=== PATIENT | female | born 1990 | race Caucasian/White ===

== ENCOUNTER 2022-11-28 05:08 | Inpatient (IN) ==
[2022-11-28] MEDS ORDERED: LIDOCAINE 1% LOCAL 20 ML VIAL INFIL PRN (05:53)
[2022-11-28] MEDS ORDERED: PENICILLIN G POTASSIUM 6 MU in DEXTROSE 5% 250 ML IV STA (05:53)
[2022-11-28] MEDS ORDERED: OXYTOCIN 30 UNITS/500 ML BAG IV PRN ×2 (05:53→20:18)
[2022-11-28] MEDS: LACTATED RINGER'S 1,000 ML IV PRN ×2 (06:11→14:36)
[2022-11-28 07:06] LABS: Hematocrit (blood only) 39.6 % (37.0-47.0); Hemoglobin 12.3 g/dl (12.0-16.0); Mean Corpuscular Hemoglobin 26.6 pg (25.0-34.0); Mean Corpuscular Hgb Conc 31.1 g/dL (32.0-36.0); Mean Corpuscular Volume 85.7 fL (80.0-100.0); Mean Platelet Volume 10.2 fL (9.4-12.4); Platelet Count 276 K/uL (130-400); RDW Standard Deviation 49.6 fL (36.4-46.3); Red Blood Count 4.62 M/uL (4.20-5.40); White Blood Count 9.51 K/ul (4.8-10.8)
[2022-11-28] MEDS ORDERED: SODIUM CHLORIDE 0.9% PF INJ 10 ML VIAL ONE (07:34)
[2022-11-28] MEDS ORDERED: ePHEDrine sulfate 50 MG/ML AMP ONE (07:34)
[2022-11-28] MEDS ORDERED: fentaNYL citrate PF 100 MCG/2 ML VIAL ONE (07:34)
[2022-11-28] MEDS ORDERED: BUPIVACAINE 0.25% PF 30 ML VIAL ONE (07:35)
[2022-11-28] MEDS ORDERED: fentaNYL 2MCG/ML ROPIVACAINE 1.25MG/ML 100 ML BAG EPI ONE (07:35)
[2022-11-28] MEDS ORDERED: LIDOCAINE 2%/EPINEPHRINE 1:200,000 20 ML PF ONE ×2 (07:35→19:14)
--- NOTE | 2022-11-28 07:36 | History & Physical Report ---
Date of Service November 28, 2022 Assessment & Plan (1) Carrier of group B Streptococcus: (2) PROM (premature rupture of membranes): Plan - Will admit to labor and delivery due to having PROM and contractions. - CBC was benign. - Anesthesia consulted for epidural placement. - Will consider Pitocin if unable to progress on her own. - membrane still intact, will rupture after epidural placement. - GBS+, penicillin started. Admission and Anticipated Discharge Date Admission Date: November 28, 2022 History of Present Illness Chief Complaint: PROM Primary Care Provider: Gloria Chavarria, DO at 40w 1d confirmed via LMP. Here for vaginal delivery after having her water break this morning at 4am and then contractions as well. Complications with this include GBS +. Has been attending OB appointments regularly. Currently taking no medications. Contractions: yes. Fluid or Blood loss: yes Movement: active Labs - Blood type: A+ - Antibody screen: negative - H.1 - Hct: 34.8 - Plt: 350 - Rubella: immune - VDRL/RPR: negative - Gonorrhea: negative - Chlamydia: negative - HIV: negative - HbSAg: negative - GBS: positive - Glucose tolerance x 2 Allergies Allergy/AdvReac Type Severity Reaction Status Date / Time No Known Allergies Allergy Verified 11/22/22 10:05 Home Medications Medication Instructions Recorded Confirmed Type docusate sodium 50 mg capsule 50 mg PO TID 11/28/22 11/28/22 History famotidine 20 mg tablet 20 mg PO DAILY 11/28/22 11/28/22 History idhkudei-[id number] 1 mg 1 tab PO DAILY 11/28/22 11/28/22 History tablet Patient History Medical History No significant past medical history Surgical History History of appendectomy S/P wisdom tooth extraction Family History Denies family history of Ovarian cancer Prostate cancer Myocardial infarction Breast cancer Colorectal cancer Social History (Updated 04/16/22 @ 11:40 by Kayla Whittaker) Smoking Status: Never smoker Second Hand Exposure: No; Do You Dip or Chew Tobacco: No; Hx Alcohol Use: No Hx Substance Use: No Preferred Language: Kyrgyz Hearing Ability: Normal 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 Curator Required: No Beliefs That Will Affect Care: None marital status: marital status details: Garrett (32) [phone] Current Living Situation: Spouse Current Living Situation Comment: lives with spouse, no pets current occupational status: employed current occupation: RN in ED at [employer] How many Children do You have: 0 Other Information That Helps Us Care for You: No Feels Safe at Home: Yes Safety Concerns: Feels Safe At This Time Childhood Exposure to Second-Hand Smoke: Yes Diet: regular caffeine: Yes Dental Care, Regularly: Yes Physical Activity Frequency: 1-2 Times per Week Seatbelt Use: always Sunscreen Use: Yes Assistive Devices: None Review of Systems Denies fever, chills, sweats Denies shortness of breath, difficulty breathing, chest pain, palpitations, chest pressure. Denies breast pain. Denies dysuria. Denies headache or changes in vision. Physical Exam Physical Exam: General: Alert, oriented. No acute distress. Cardiac: Regular rate and rhythm, no murmurs/rubs/gallops. Respiratory: Clear to auscultation bilaterally a/p, no wheezes/rales/rhonchi. No increased work of breathing. Symmetrical chest rise. No respiratory distress. Abdomen: Gravid; cat 1 FHTs; Position: cephalic presentation Pelvic: Dilation 4.5cm; Effacement 60; Station -[address] Garza Lower Extremities: No lower extremity edema or swelling. No deep calf pain. [place]'s negative bilaterally Results & Data Vital Signs (Past 12 Hours) Vital Signs Temp Pulse Resp BP 11/28/22 05:28 37.2 C 18 11/28/22 07:04 83 158/94 H 11/28/22 05:38 99 H 140/85 11/28/22 05:27 94 H 145/91 H Supervising Physician Co-Signing Physician Notes Resident Physician Supervision Note: I interviewed and examined the patient. Discussed with Dr. Eaton and agree with findings and plan as documented in the note. Any exceptions or clarifications are listed here: 32 yo G1 at 40 1/7 wga presented w/ LOF. Amnisure confirmed positive. PNI: GBS+. Mild range BPs, pt appears uncomfortable - suspect pain related but will get labs to r/o. SVE 4-5/-2 with forebag palpated. Desires epidural so will obtain and then plan rupture of forebag. Pcn ordered Documented By: Radha Garza MD Resident Activity Tracking Resident Involvement: Resident Care Provided Care Provided: OB Delivery
--- NOTE | 2022-11-28 07:40 | Anesthesiology Consultation ---
Date of Service November 28, 2022 Assessment & Plan (1) Encounter for pre-operative examination: Chart Review Chart Review: Acceptable Risk for Labor Epidural History Height/Weight Height: 5 ft 7 in Weight: 99.79 kg Allergies Allergy/AdvReac Type Severity Reaction Status Date / Time No Known Allergies Allergy Verified 11/22/22 10:05 Medications Home Medications Medication Instructions Recorded Confirmed Last Taken docusate sodium 50 mg capsule 50 mg PO TID 11/28/22 11/28/22 Unknown famotidine 20 mg tablet 20 mg PO DAILY 11/28/22 11/28/22 Unknown inilvfsp-[id number] 1 mg 1 tab PO DAILY 11/28/22 11/28/22 Unknown tablet Active Medications Generic Name Dose Route Start Last Admin Trade Name Freq PRN Reason Stop Dose Admin Lactated Ringer's 1,000 mls @ 125 mls/hr 11/28/22 05:53 11/28/22 06:11 Lr IV 11/30/22 05:52 125 mls/hr .Q8H PRN Administration L&D Protocol Protocol Past Medical History Medical History No significant past medical history Past Family History Family History Denies family history of Ovarian cancer Prostate cancer Myocardial infarction Breast cancer Colorectal cancer Past Surgical History Surgical History History of appendectomy S/P wisdom tooth extraction Social History Smoking Status: Never smoker Do You Dip or Chew Tobacco: No Hx Alcohol Use: No Hx Substance Use: No Physical Exam Vital Signs Last Vital Signs Temp 37.2 C 11/28/22 05:28 Pulse 83 11/28/22 07:04 Resp 18 11/28/22 05:28 BP 158/94 H 11/28/22 07:04 Testing Laboratory Results 11/28/22 06:44
[2022-11-28] MEDS ORDERED: fentaNYL citrate PF 100 MCG/2 ML VIAL EPI PRN (08:24)
[2022-11-28] MEDS ORDERED: fentaNYL 2MCG/ML ROPIVACAINE 1.25MG/ML 100 ML BAG EPI PRN (08:24)
[2022-11-28] MEDS ORDERED: fentaNYL citrate PF 100 MCG/2 ML VIAL EPI STA (08:24)
[2022-11-28] MEDS ORDERED: ROPIVACAINE 0.5% PF 5 MG/ML 20 ML VIAL EPI PRN (08:24)
[2022-11-28] MEDS ORDERED: SODIUM CHLORIDE 0.9% PF INJ 10 ML VIAL EPI STA (08:24)
[2022-11-28] MEDS ORDERED: NALOXONE HCL 1 MG in SODIUM CHLORIDE 0.9% 1000ML 1,000 ML IV PRN (08:24)
[2022-11-28] MEDS ORDERED: ONDANSETRON INJ 2 MG/ML 2 ML VIAL IV PRN (08:24)
[2022-11-28] MEDS ORDERED: BUPIVACAINE 0.25% PF 30 ML VIAL EPI PRN (08:24)
[2022-11-28] MEDS ORDERED: ePHEDrine sulfate 50 MG/ML AMP IV PRN (08:24)
[2022-11-28] MEDS ORDERED: NALOXONE HCL 0.4 MG/1 ML VIAL/CARP IV PRN (08:24)
[2022-11-28] MEDS ORDERED: LIDOCAINE 2% MPF LOCAL 5 ML VIAL EPI PRN (08:24)
[2022-11-28] MEDS ORDERED: BUPIVACAINE 0.25% PF 30 ML VIAL EPI STA (08:24)
[2022-11-28] MEDS ORDERED: SODIUM CHLORIDE 0.9% PF INJ 10 ML VIAL EPI PRN (08:24)
[2022-11-28] MEDS ORDERED: LIDOCAINE 2%/EPINEPHRINE 1:200,000 20 ML PF EPI STA (08:24)
[2022-11-28 09:00] LABS: Albumin Level 3.4 gm/dl (3.4-5.0); BUN Creatinine Ratio 11.6 (10-20); Bilirubin,Total 0.4 mg/dl (0.2-1.0); Calcium 8.9 mg/dl (8.6-10.3); Creatinine Clr Calc Pharmacy 140.7 ml/min; Est GFR (African American) 132.6 ml/min; Est GFR (Non-African American) 114.4 ml/min; Globulin 3.4 gm/dl (2.5-4.0); Potassium 4.4 mmol/L (3.5-5.1); Total Protein 6.8 gm/dl (6.0-8.3)
--- NOTE | 2022-11-28 10:29 | Labor Progress Brief Note ---
Date of Service November 28, 2022 Subjective Comfortable with epidural. FHT Cat 1 with 3 minute decel resolved with position changes. [place] Q 2 SVE 7/100/-1 AROM of forebag, clear fluid Continue labor. Assessment & Plan Admission and Anticipated Discharge Date Admission Date: November 28, 2022 Results & Data Vital Signs (Past 12 Hours) Vital Signs Temp Pulse Resp BP Pulse Ox 11/28/22 05:28 37.2 C 18 11/28/22 10:22 100 H 98 11/28/22 10:17 94 H 97 11/28/22 10:16 94 H 119/73 11/28/22 10:12 94 H 97 11/28/22 10:07 97 H 97 11/28/22 10:02 96 H 125/81 97 11/28/22 09:57 103 H 97 11/28/22 09:52 100 H 98 11/28/22 09:47 100 H 98 11/28/22 09:46 93 H 130/86 11/28/22 09:42 97 H 98 11/28/22 09:37 106 H 98 11/28/22 09:32 102 H 98 11/28/22 09:31 99 H 126/81 11/28/22 09:27 95 H 98 11/28/22 09:25 18 11/28/22 09:25 37.5 C 18 11/28/22 09:22 109 H 99 11/28/22 09:17 97 H 97 11/28/22 09:16 100 H 125/72 11/28/22 09:12 105 H 99 11/28/22 09:07 101 H 98 11/28/22 09:02 98 11/28/22 09:02 106 H 11/28/22 09:02 95 H 130/74 11/28/22 08:57 108 H 99 11/28/22 08:52 104 H 98 11/28/22 08:47 99 11/28/22 08:47 104 H 11/28/22 08:47 102 H 129/75 11/28/22 08:42 99 H 98 11/28/22 08:37 111 H 98 11/28/22 08:32 111 H 98 11/28/22 08:30 106 H 135/74 11/28/22 08:27 115 H 136/78 98 11/28/22 08:24 111 H 136/77 06/01/23 08:22 120 H 99 11/28/22 08:21 114 H 128/78 11/28/22 08:18 102 H 126/76 11/28/22 08:17 90 98 11/28/22 08:16 78 99/52 L 11/28/22 08:12 98 11/28/22 08:12 115 H 11/28/22 08:12 116 H 131/81 11/28/22 08:06 110 H 97 11/28/22 08:04 110 H 136/89 11/28/22 08:01 120 H 98 11/28/22 07:57 118 H 140/96 11/28/22 07:56 118 H 99 11/28/22 07:51 104 H 98 11/28/22 07:04 83 158/94 H 11/28/22 05:38 99 H 140/85 11/28/22 05:27 94 H 145/91 H Coding Level of Care Code None Diagnoses
[2022-11-28 10:55] LABS: Total Protein Urine Random 28.9 mg/dl (0-11.9)
[2022-11-28 11:01] LABS: Creatinine Urine Random 108.4 mg/dl; Protein Creatinine Ratio Urine 0.3 (0-0.2)
[2022-11-28] MEDS: PENICILLIN G POTASSIUM 3 MU in DEXTROSE 5% 100 ML IV PRN ×3 (11:15→20:13)
[2022-11-28] MEDS ORDERED: NURSING L&D Epidural Breakthrough Pain Update ONE (13:52)
[2022-11-28] MEDS ORDERED: ACETAMINOPHEN 500 MG TAB PO PRN (14:30)
--- NOTE | 2022-11-28 14:48 | Anesthesia Procedure Note ---
Date of Service November 28, 2022 Anesthesia Epidural Re-Dose Vital Signs Temp Pulse Resp BP Pulse Ox 37.0 C 99 H 18 135/100 98 11/28/22 13:16 11/28/22 14:42 11/28/22 13:16 11/28/22 14:31 11/28/22 14:42 Notes Pain Intensity: 4 Dilatation (cm): 9.0 Effacement (%): 100 Called by nursing to evaluate epidural as the patient is having increased pain. The epidural was re-dosed with the following medications (all medications via epidural route) after negative aspiration of the epidural catheter for CSF/HEME 1.2% lidocaine and 0.2% ropivacaine 6ml After Epidural Re-Dose Mental Status: alert / awake / arousable Pain: improving with treatment Airway Patency, RR, SpO2: stable & adequate BP & HR: stable & adequate
[2022-11-28] MEDS ORDERED: ROPIVACAINE 0.5% 5 MG/ML 30 ML VIAL ONE (19:14)
--- NOTE | 2022-11-28 19:19 | Anesthesia Procedure Note ---
Date of Service November 28, 2022 Anesthesia Epidural Re-Dose Vital Signs Temp Pulse Resp BP Pulse Ox 37.4 C 94 H 18 148/75 H 97 11/28/22 19:08 11/28/22 19:12 11/28/22 19:08 11/28/22 19:06 11/28/22 19:12 Notes Pain Intensity: 4 Dilatation (cm): 9.5 Effacement (%): 100 Called by nursing to evaluate epidural as the patient is having increased pain. The epidural was re-dosed with the following medications (all medications via epidural route) after negative aspiration of the epidural catheter for CSF/HEME 1.2% lidocaine and 0.2% ropivacaine 7ml After Epidural Re-Dose Mental Status: alert / awake / arousable Pain: improving with treatment Airway Patency, RR, SpO2: stable & adequate BP & HR: stable & adequate
--- NOTE | 2022-11-28 20:12 | Labor Progress Brief Note ---
Date of Service November 28, 2022 Subjective Had anterior lip, started pushing with retraction of cervical lip - mostly resolved - will continue pushing and recheck after a few more contractions. FHT Cat 1 with accels, except 2 decelerations resolved with repositioning. station 1+ Assessment & Plan Admission and Anticipated Discharge Date Admission Date: November 28, 2022 Results & Data Vital Signs (Past 12 Hours) Vital Signs Temp Pulse Resp BP Pulse Ox 11/28/22 19:08 37.4 C 18 11/28/22 20:09 126 H 88 L 11/28/22 20:07 116 H 99 11/28/22 20:02 115 H 100 11/28/22 19:59 117 H 92 11/28/22 19:57 97 H 99 11/28/22 19:52 97 H 98 11/28/22 19:51 98 H 116/71 11/28/22 19:47 109 H 97 11/28/22 19:42 86 97 11/28/22 19:37 105 H 97 11/28/22 19:36 99 H 119/71 11/28/22 19:32 99 H 98 11/28/22 19:27 98 H 97 11/28/22 19:22 100 H 97 11/28/22 19:21 92 H 132/81 11/28/22 19:19 83 138/72 11/28/22 19:17 81 153/79 H 96 11/28/22 19:12 94 H 97 11/28/22 19:07 86 97 11/28/22 19:06 88 148/75 H 11/28/22 19:02 104 H 98 11/28/22 18:57 107 H 97 11/28/22 18:52 91 H 97 11/28/22 18:51 93 H 133/76 11/28/22 18:47 88 97 11/28/22 18:42 93 H 98 11/28/22 18:37 96 H 97 11/28/22 18:35 90 133/74 11/28/22 18:34 103 H 93 11/28/22 18:32 86 98 11/28/22 18:27 95 H 98 11/28/22 18:22 97 H 98 11/28/22 18:17 91 H 97 11/28/22 18:12 92 H 97 11/28/22 18:07 101 H 97 11/28/22 18:05 91 H 131/83 11/28/22 18:02 93 H 96 11/28/22 17:57 93 H 97 11/28/22 17:52 95 H 98 11/28/22 17:50 95 H 125/85 11/28/22 17:47 85 97 11/28/22 17:42 97 H 97 11/28/22 17:37 88 96 11/28/22 17:36 85 129/82 11/28/22 17:32 88 97 11/28/22 17:27 91 H 97 11/28/22 17:22 106 H 98 11/28/22 17:21 89 141/80 H 11/28/22 17:17 101 H 98 11/28/22 17:12 102 H 98 11/28/22 17:07 105 H 98 11/28/22 17:06 94 H 136/97 11/28/22 17:02 105 H 97 11/28/22 16:57 97 H 99 11/28/22 16:52 94 H 99 11/28/22 16:50 92 H 127/77 11/28/22 16:47 92 H 99 11/28/22 16:42 88 99 11/28/22 16:37 98 H 99 11/28/22 16:30 17 11/28/22 16:30 37.1 C 17 11/28/22 16:35 94 H 139/83 11/28/22 16:32 90 99 11/28/22 16:27 92 H 99 11/28/22 16:22 95 H 99 11/28/22 16:21 90 141/71 H 11/28/22 16:17 98 H 99 11/28/22 16:12 89 98 11/28/22 16:07 84 99 11/28/22 16:06 93 H 122/72 11/28/22 16:02 84 99 11/28/22 15:57 88 98 11/28/22 15:52 86 99 11/28/22 15:51 86 119/67 11/28/22 15:47 94 H 98 11/28/22 15:42 92 H 99 11/28/22 15:37 102 H 99 11/28/22 15:35 84 122/67 11/28/22 15:32 84 98 11/28/22 15:27 93 H 99 11/28/22 15:22 86 98 11/28/22 15:21 90 130/72 11/28/22 15:17 95 H 99 11/28/22 15:12 91 H 98 11/28/22 15:07 106 H 100 11/28/22 15:05 96 H 136/77 11/28/22 15:02 93 H 98 11/28/22 14:57 99 H 98 11/28/22 14:52 95 H 97 11/28/22 14:49 95 H 145/87 H 11/28/22 14:47 97 11/28/22 14:47 95 H 11/28/22 14:47 93 H 137/82 11/28/22 14:45 37.0 C 96 H 148/91 H 11/28/22 14:42 99 H 98 11/28/22 14:37 98 H 97 11/28/22 14:32 96 H 98 11/28/22 14:31 88 135/100 11/28/22 14:27 94 H 97 11/28/22 14:22 92 H 97 11/28/22 14:17 98 H 97 11/28/22 14:16 89 140/87 11/28/22 14:12 104 H 98 11/28/22 14:07 99 H 98 11/28/22 14:02 103 H 137/82 97 11/28/22 13:57 101 H 98 11/28/22 13:52 92 H 97 11/28/22 13:47 100 H 98 11/28/22 13:46 94 H 142/83 H 11/28/22 13:42 93 H 97 11/28/22 13:37 94 H 97 11/28/22 13:32 91 H 97 11/28/22 13:31 98 H 135/91 11/28/22 13:27 91 H 98 11/28/22 13:22 89 97 11/28/22 13:17 99 H 98 11/28/22 13:16 37.0 C 97 H 18 126/79 11/28/22 13:12 100 H 97 11/28/22 13:07 95 H 98 11/28/22 13:02 84 98 11/28/22 13:01 93 H 142/86 H 11/28/22 12:57 96 H 98 11/28/22 12:52 100 H 144/83 H 98 11/28/22 12:47 103 H 97 11/28/22 12:46 98 H 157/102 H 11/28/22 12:42 100 H 98 11/28/22 12:37 104 H 97 11/28/22 12:32 99 H 98 11/28/22 12:31 94 H 144/93 H 11/28/22 12:27 95 H 97 11/28/22 12:22 104 H 97 11/28/22 12:17 105 H 141/90 H 97 11/28/22 12:12 102 H 98 11/28/22 12:07 101 H 97 11/28/22 12:02 94 H 96 11/28/22 12:01 100 H 141/87 H 11/28/22 11:57 98 H 97 11/28/22 11:52 99 H 97 11/28/22 11:47 98 11/28/22 11:47 99 H 11/28/22 11:47 103 H 143/88 H 11/28/22 11:42 95 H 97 11/28/22 11:37 110 H 98 11/28/22 11:32 110 H 97 11/28/22 11:31 108 H 137/91 11/28/22 11:27 104 H 97 11/28/22 11:22 98 H 97 11/28/22 11:17 97 H 97 11/28/22 11:16 37.4 C 96 H 17 137/85 11/28/22 11:12 99 H 97 11/28/22 11:07 102 H 97 11/28/22 11:02 98 11/28/22 11:02 99 H 11/28/22 11:02 99 H 135/83 11/28/22 10:57 102 H 97 11/28/22 10:52 98 H 97 11/28/22 10:47 97 H 97 11/28/22 10:46 98 H 137/78 11/28/22 10:42 98 H 98 11/28/22 10:37 89 98 11/28/22 10:32 96 H 144/84 H 97 11/28/22 10:27 98 H 97 11/28/22 10:22 100 H 98 11/28/22 10:17 94 H 97 11/28/22 10:16 94 H 119/73 11/28/22 10:12 94 H 97 11/28/22 10:07 97 H 97 11/28/22 10:02 96 H 125/81 97 11/28/22 09:57 103 H 97 11/28/22 09:52 100 H 98 11/28/22 09:47 100 H 98 11/28/22 09:46 93 H 130/86 11/28/22 09:42 97 H 98 11/28/22 09:37 106 H 98 11/28/22 09:32 102 H 98 11/28/22 09:31 99 H 126/81 11/28/22 09:27 95 H 98 11/28/22 09:25 18 11/28/22 09:25 37.5 C 18 11/28/22 09:22 109 H 99 11/28/22 09:17 97 H 97 11/28/22 09:16 100 H 125/72 11/28/22 09:12 105 H 99 11/28/22 09:07 101 H 98 11/28/22 09:02 98 11/28/22 09:02 106 H 11/28/22 09:02 95 H 130/74 11/28/22 08:57 108 H 99 11/28/22 08:52 104 H 98 11/28/22 08:47 99 11/28/22 08:47 104 H 11/28/22 08:47 102 H 129/75 11/28/22 08:42 99 H 98 11/28/22 08:37 111 H 98 11/28/22 08:32 111 H 98 11/28/22 08:30 106 H 135/74 11/28/22 08:27 115 H 136/78 98 11/28/22 08:24 111 H 136/77 11/28/22 08:22 120 H 99 11/28/22 08:21 114 H 128/78 11/28/22 08:18 102 H 126/76 11/28/22 08:17 90 98 11/28/22 08:16 78 99/52 L 11/28/22 08:12 98 11/28/22 08:12 115 H 11/28/22 08:12 116 H 131/81 Coding Level of Care Code None Diagnoses
[2022-11-28] MEDS ORDERED: MINERAL OIL 30 ML UDC ONE (22:37)
--- NOTE | 2022-11-29 00:40 | Delivery Summary ---
Vaginal Delivery Summary Date of Service November 29, 2022 Vaginal Delivery Summary and 2nd Degree LAC (with bilateral sulcal) Pre-operative Diagnosis: at 40 1/7 srom gbs positive Post-operative Diagnosis: same Procedure: epidural pitocin stellate second degree laceration and repair EBL: 450cc Anesthesia: epidural Procedure: The patient presented to labor and delivery with srom and labor. She progressed spontaneously and then got epidural. She progressed to c/c and started pushing. Required pitocin to get contractions closer together for pushing. The patient pushed off/on for 3 hrs 45 min to deliver a viable male in rop position. The anterior shoulder was delivered easily and the rest of the was then delivered without difficulty. The baby was vigorous. The nose and mouth were bulb suctioned and the was placed in the maternal abdomen for drying and attention. Cord was clamped and cut at one minute of life. Cord blood and segment obtained. Placenta delivered spontaneous, intact with a three vessel cord. Cervix/sulci/rectum were intact. A second degree perineal laceration with bilateral extension in the right and left sulcus was repaired in the normal standard fashion. Hemostasis obtained with dilute pitocin and fundal massage. Apgars were 8/9. Mother and baby doing well at the end of the delivery. [facility] Vaginal Delivery Charge Delivery Type Details: and 2nd Degree LAC (with bilateral sulcal)
[2022-11-29] MEDS ORDERED: ACETAMINOPHEN 325 MG TAB PO PRN (00:44)
[2022-11-29] MEDS ORDERED: HYDROCORTISONE ACETATE 25 MG SUPP PR PRN (00:44)
[2022-11-29] MEDS ORDERED: OXYTOCIN 30 UNITS/500 ML BAG IV PRN (00:44)
[2022-11-29] MEDS ORDERED: oxyCODONE/ACETAMINOPHEN 5mg/325mg TAB PO PRN (00:44)
[2022-11-29] MEDS ORDERED: bisacodyL 10 MG SUPP PR PRN (00:44)
[2022-11-29] MEDS ORDERED: DIPHTHERIA/TETANUS/PERTUSSIS Vaccine (Tdap, Age 7+yrs) 0.5mL SYR/VL IM ONE (00:44)
[2022-11-29] MEDS ORDERED: BENZOCAINE 20% AER SPR 82.5 GM CAN EXT PRN (00:44)
[2022-11-29] MEDS: IBUPROFEN 600 MG TAB PO PRN ×5 (01:34→21:05)
--- NOTE | 2022-11-29 03:53 | Anesthesia Procedure Note ---
Date of Service November 29, 2022 Anesthesia Post Epidural Note Vital Signs Vital Signs: Temp Pulse Resp BP Pulse Ox 37.4 C 103 H 18 141/87 H 93 11/28/22 23:01 11/29/22 02:29 11/29/22 02:15 11/29/22 02:29 11/28/22 23:51 Pain Intensity Bilateral Abdomen: Pain Intensity: 1 Notes Mental Status: alert / awake / arousable and participated in evaluation Nausea / Vomiting: adequately controlled Pain: adequately controlled Airway Patency, RR, SpO2: stable & adequate BP & HR: stable & adequate Hydration State: stable & adequate Neuraxial Anesthesia: was administered and sensory block is resolving Anesthetic Complications: no major complications apparent Epidural: Removed without complications and With tip intact
[2022-11-29 06:32] LABS: Hematocrit (blood only) 31.3 % (37.0-47.0)
--- NOTE | 2022-11-29 07:17 | Obstetrical Progress Note ---
Date of Service <Corey Eaton DO - Last Filed: 11/29/22 07:19> November 29, 2022 Assessment & Plan <Corey Eaton DO - Last Filed: 11/29/22 07:19> (1) Vaginal delivery: - Feels well today. Eating well, voiding well, ambulating well. - Pain well controlled with ibuprofen 600mg Q4H PRN - Routine care -- OOB, ambulation, diet progression as tolerated - After discharge will have 6 week follow-up with Dr. Bay. Day #:: 1 <Jaylin Bustamante, DO - Last Filed: 11/29/22 07:58> (1) Vaginal delivery: Subjective <Corey Eaton DO - Last Filed: 11/29/22 07:19> Ambulation: ambulating normally Voiding: no voiding problems Passing Gas:: Yes Diet Tolerance:: regular diet Lochia:: Small Feeding Type:: breast feeding Current Pain Level(1-10): 3 Review of Systems Denies fever, chills, sweats Denies shortness of breath, difficulty breathing, chest pain, palpitations, chest pressure. Denies breast pain. Denies dysuria. Denies headache or changes in vision. Physical Exam <Corey Eaton DO - Last Filed: 11/29/22 07:19> General: Alert, oriented. No acute distress. Cardiac: Regular rate and rhythm, no murmurs/rubs/gallops. Respiratory: Clear to auscultation bilaterally a/p, no wheezes/rales/rhonchi. No increased work of breathing. Symmetrical chest rise. No respiratory distress. Abdomen: Soft, nontender, nondistended. Bowel sounds present. Uterus: Uterine fundus firm, palpable 2 cm below umbilicus. Lower Extremities: No lower extremity edema or swelling. No deep calf pain. [place]'s negative bilaterally. Results & Data <Corey Eaton DO - Last Filed: 11/29/22 07:19> Vital Signs (Past 12 Hours) Vital Signs Temp Pulse Pulse Resp BP BP Pulse Ox 11/29/22 03:00 37.1 C 101 H 18 136/88 95 11/29/22 02:15 18 11/29/22 01:00 18 11/29/22 00:45 18 11/29/22 00:30 18 11/29/22 01:45 18 11/29/22 01:15 18 11/29/22 00:15 18 11/29/22 02:29 103 H 141/87 H 11/29/22 01:57 96 H 143/85 H 11/29/22 01:42 105 H 131/85 11/29/22 01:27 100 H 134/85 11/29/22 01:12 90 133/82 11/29/22 00:57 95 H 149/88 H 11/29/22 00:42 100 H 153/94 H 11/28/22 23:01 18 11/28/22 23:01 37.4 C 18 11/28/22 21:01 18 11/28/22 21:01 36.8 C 18 11/29/22 00:27 100 H 154/98 H 11/29/22 00:15 100 H 144/69 H 11/28/22 23:51 110 H 93 11/28/22 23:49 110 H 97 11/28/22 23:44 110 H 95 11/28/22 23:39 106 H 96 11/28/22 23:34 122 H 97 11/28/22 23:32 114 H 94 11/28/22 23:29 107 H 96 11/28/22 23:24 112 H 96 11/28/22 23:19 120 H 97 11/28/22 23:14 125 H 97 11/28/22 23:09 121 H 95 11/28/22 23:04 135 H 96 11/28/22 22:59 115 H 95 11/28/22 22:54 124 H 95 11/28/22 22:49 125 H 96 11/28/22 22:44 122 H 95 11/28/22 22:45 112 H 94 11/28/22 22:39 132 H 96 11/28/22 22:38 115 H 148/77 H 11/28/22 22:34 133 H 97 11/28/22 22:29 128 H 96 11/28/22 22:28 115 H 94 11/28/22 22:24 133 H 96 11/28/22 22:22 118 H 145/79 H 11/28/22 22:19 122 H 95 11/28/22 22:14 116 H 94 11/28/22 22:09 96 11/28/22 22:09 132 H 11/28/22 22:09 120 H 141/75 H 11/28/22 22:04 120 H 95 11/28/22 21:59 127 H 96 11/28/22 21:54 126 H 96 11/28/22 21:49 115 H 96 11/28/22 21:44 121 H 96 11/28/22 21:40 111 H 90 11/28/22 21:39 115 H 95 11/28/22 21:37 131 H 125/70 11/28/22 21:34 108 H 95 11/28/22 21:31 116 H 93 11/28/22 21:29 115 H 96 11/28/22 21:24 115 H 97 11/28/22 21:22 110 H 119/82 11/28/22 21:19 116 H 95 11/28/22 21:14 126 H 94 11/28/22 21:09 123 H 97 11/28/22 21:10 125 H 91 11/28/22 21:07 115 H 131/75 11/28/22 21:04 96 11/28/22 21:04 116 H 11/28/22 21:04 116 H 86 L 11/28/22 20:59 99 H 97 11/28/22 20:57 114 H 89 L 11/28/22 20:54 110 H 97 11/28/22 20:52 125 H 110/65 11/28/22 20:49 115 H 84 L 11/28/22 20:48 116 H 99 11/28/22 20:43 113 H 97 11/28/22 20:42 107 H 92 11/28/22 20:38 112 H 96 11/28/22 20:37 111 H 125/63 11/28/22 20:35 88 L 11/28/22 20:33 123 H 99 11/28/22 20:29 108 H 90 11/28/22 20:27 126 H 100 11/28/22 20:24 113 H 125/64 90 11/28/22 20:22 110 H 99 11/28/22 20:17 112 H 100 11/28/22 20:14 117 H 87 L 11/28/22 20:12 114 H 100 11/28/22 20:09 126 H 88 L 11/28/22 20:07 116 H 99 11/28/22 20:02 115 H 100 11/28/22 19:59 117 H 92 11/28/22 19:57 97 H 99 11/28/22 19:52 97 H 98 11/28/22 19:51 98 H 116/71 11/28/22 19:47 109 H 97 11/28/22 19:42 86 97 11/28/22 19:37 105 H 97 11/28/22 19:36 99 H 119/71 11/28/22 19:32 99 H 98 11/28/22 19:27 98 H 97 11/28/22 19:22 100 H 97 11/28/22 19:21 92 H 132/81 11/28/22 19:19 83 138/72 O2 Del Method 11/29/22 03:00 Room Air 11/29/22 02:15 11/29/22 01:00 11/29/22 00:45 11/29/22 00:30 11/29/22 01:45 11/29/22 01:15 11/29/22 00:15 11/29/22 02:29 11/29/22 01:57 11/29/22 01:42 11/29/22 01:27 11/29/22 01:12 11/29/22 00:57 11/29/22 00:42 11/28/22 23:01 11/28/22 23:01 11/28/22 21:01 11/28/22 21:01 11/29/22 00:27 11/29/22 00:15 11/28/22 23:51 11/28/22 23:49 11/28/22 23:44 11/28/22 23:39 11/28/22 23:34 11/28/22 23:32 11/28/22 23:29 11/28/22 23:24 11/28/22 23:19 11/28/22 23:14 11/28/22 23:09 11/28/22 23:04 11/28/22 22:59 11/28/22 22:54 11/28/22 22:49 11/28/22 22:44 11/28/22 22:45 11/28/22 22:39 11/28/22 22:38 11/28/22 22:34 11/28/22 22:29 11/28/22 22:28 11/28/22 22:24 11/28/22 22:22 11/28/22 22:19 11/28/22 22:14 11/28/22 22:09 11/28/22 22:09 11/28/22 22:09 11/28/22 22:04 11/28/22 21:59 11/28/22 21:54 11/28/22 21:49 11/28/22 21:44 11/28/22 21:40 11/28/22 21:39 11/28/22 21:37 11/28/22 21:34 11/28/22 21:31 11/28/22 21:29 11/28/22 21:24 11/28/22 21:22 11/28/22 21:19 11/28/22 21:14 11/28/22 21:09 11/28/22 21:10 11/28/22 21:07 11/28/22 21:04 11/28/22 21:04 11/28/22 21:04 11/28/22 20:59 11/28/22 20:57 11/28/22 20:54 11/28/22 20:52 11/28/22 20:49 11/28/22 20:48 11/28/22 20:43 11/28/22 20:42 11/28/22 20:38 11/28/22 20:37 11/28/22 20:35 11/28/22 20:33 11/28/22 20:29 11/28/22 20:27 11/28/22 20:24 11/28/22 20:22 11/28/22 20:17 11/28/22 20:14 11/28/22 20:12 11/28/22 20:09 11/28/22 20:07 11/28/22 20:02 11/28/22 19:59 11/28/22 19:57 11/28/22 19:52 11/28/22 19:51 11/28/22 19:47 11/28/22 19:42 11/28/22 19:37 11/28/22 19:36 11/28/22 19:32 11/28/22 19:27 11/28/22 19:22 11/28/22 19:21 11/28/22 19:19 Laboratory Results 11/29/22 06:06 11/28/22 08:27 <Jaylin Bustamante DO - Last Filed: 11/29/22 07:58> Co-Signing Physician Notes Resident Physician Supervision Note: I interviewed and examined the patient. Discussed with Dr. Eaton and agree with findings and plan as documented in the note. Any exceptions or clarifications are listed here: PPD#1 doing well. Continue routine care. Anticipate DC home tomorrow. Documented By: Jaylin Bustamante DO Resident Activity Tracking <Corey Eaton DO - Last Filed: 11/29/22 07:19> Resident Involvement: Resident Care Provided Care Provided: OB Delivery
[2022-11-29] MEDS: DOCUSATE SODIUM 100 MG CAP PO SCH ×2 (07:52→21:04)
[2022-11-29] MEDS: PRENATAL VITAMIN 1 TAB PO SCH (07:52)
[2022-11-29] MEDS ORDERED: SIMETHICONE 80 MG CHEW PO PRN (08:02)
[2022-11-30] MEDS: IBUPROFEN 600 MG TAB PO PRN ×2 (00:55→06:30)
--- NOTE | 2022-11-30 06:48 | Obstetrical Progress Note ---
Date of Service <Corey Eaton DO - Last Filed: 11/30/22 07:26> November 30, 2022 Assessment & Plan <Corey Eaton DO - Last Filed: 11/30/22 07:26> (1) Vaginal delivery: - Feels well today. Eating well, voiding well, ambulating well. - Pain well controlled with ibuprofen 600mg Q4H PRN - Routine care -- OOB, ambulation, diet progression as tolerated - After discharge will have 6 week follow-up with Dr. Bay. - Will D/C today. Day #:: 2 <Yenni Bay MD, FACOG - Last Filed: 11/30/22 07:27> (1) Vaginal delivery: Subjective <Corey Eaton DO - Last Filed: 11/30/22 07:26> Ambulation: ambulating normally Voiding: no voiding problems Passing Gas:: Yes Diet Tolerance:: regular diet Lochia:: Small Feeding Type:: breast feeding Current Pain Level(1-10): 1 Review of Systems Denies fever, chills, sweats Denies shortness of breath, difficulty breathing, chest pain, palpitations, chest pressure. Denies breast pain. Denies dysuria. Denies headache or changes in vision. Physical Exam <Corey Eaton DO - Last Filed: 11/30/22 07:26> General: Alert, oriented. No acute distress. Cardiac: Regular rate and rhythm, no murmurs/rubs/gallops. Respiratory: Clear to auscultation bilaterally a/p, no wheezes/rales/rhonchi. No increased work of breathing. Symmetrical chest rise. No respiratory distress. Abdomen: Soft, nontender, nondistended. Bowel sounds present. Uterus: Uterine fundus firm, palpable 2 cm below umbilicus. Lower Extremities: No lower extremity edema or swelling. No deep calf pain. [place]'s negative bilaterally. Results & Data <Corey Eaton DO - Last Filed: 11/30/22 07:26> Vital Signs (Past 12 Hours) Vital Signs Temp Pulse Resp BP Pulse Ox O2 Del Method 11/30/22 03:35 36.5 C 80 20 116/75 97 Room Air 11/29/22 23:31 36.7 C 85 18 132/80 94 Room Air 11/29/22 21:03 36.5 C 99 H 20 127/80 97 Room Air <Yenni Bay MD, FACOG - Last Filed: 11/30/22 07:27> Co-Signing Physician Notes Resident Physician Supervision Note: I interviewed and examined the patient. Discussed with Dr. Eaton and agree with findings and plan as documented in the note. Any exceptions or clarifications are listed here: Doing well. Plan d/c today. Precautions given. Documented By: Yenni Bay MD, FACOG Resident Activity Tracking <Corey Eaton, - Last Filed: 11/30/22 07:26> Resident Involvement: Resident Care Provided Care Provided: OB Delivery
[2022-11-30] MEDS: DOCUSATE SODIUM 100 MG CAP PO SCH (08:19)
[2022-11-30] MEDS: PRENATAL VITAMIN 1 TAB PO SCH (08:19)
[2022-11-30] MEDS ORDERED: bisacodyL 5 MG TABEC PO SCH (20:00)
== END 2022-11-30 23:59 | disposition home or self-care (01) | DRG 807 ==
LOC: EDSTATUS 05:08 → OPB 05:08 → 4S1 05:11 → DIS 05:11 → 4S1 05:54 → OPB 05:55 → 4E2 11-29 03:02 → UNDODISIN 11-30 09:00 → EDSTATUS 12-05 10:49 → OPB 12-06 13:51

== ENCOUNTER 2023-09-27 09:12 | Inpatient (IN) ==
--- NOTE | 2023-09-27 09:33 | Emergency Department Note ---
Impression & Plan Lower back pain, Failure of outpatient treatment, Lumbar disc herniation ED Provider Note NAME: JERZY NUNEZ AGE: 33 SEX: F : 1990 ARRIVES VIA: Walk-In INFORMANT: [Patient] ED PROVIDER(S): [Corey Rothman MD] CHIEF COMPLAINT: Back pain HISTORY OF PRESENT ILLNESS: The patient is a 33-year-old female who states that around 3 months ago, she began having issues with her lower back more so on the right. Patient saw her doctor's office and was given a taper of steroids as well as Flexeril. The Flexeril did not help but the steroids seemed to make some improvement. She did see chiropractics, this did not help. The patient has been dealing with pain intermittently since the initial episode. She states that in the last 6 days, the pain has become unbearable. She saw chiropractics without help. She is now using 800 of Motrin and 1000 of Tylenol. She went to [facility] 3 days ago and was given a prednisone taper, this has not helped. She is taking Flexeril without relief. She did try massage without relief. She had an x-ray performed outpatient that showed some mild arthritis, no fractures or other concerning pathology. The patient states that today, the pain is to the point where she is in tears. It is mostly on the right. It does radiate to the buttock. No pain down the legs although at times, she thinks her right leg feels a bit weaker than the left. No numbness to the groin or perineum, no urinary complaints, no fever, chills or cough. There has been no fall or trauma. Her pain does worsen with any type of movement. PMHx/PSHx/Social Hx: See Below PHYSICAL EXAM: GENERAL: Patient is in moderate distress from pain, tearful. HEENT: No acute trauma, normocephalic atraumatic, mucous membranes moist, no nasal congestion. EXTREMITIES: No cyanosis, full range of motion of all the joints without pain or difficulty. NEUROLOGIC: Oriented x 3, no acute motor or sensory deficits, no focal weakness. There are 2/4 reflexes of both knees and both Achilles. Her right and left great toe strength is intact and equal. DIFFERENTIAL DIAGNOSIS: Lumbar disc disease, herniated lumbar disc, muscle spasm, nerve impingement, hematoma, among others. EMERGENCY DEPARTMENT PROCEDURES: MEDICAL DECISION MAKING: There is no leukocytosis or worrisome anemia. There is a normal platelet count. No renal failure or significant electrolyte abnormality. testing is negative. Lumbar spine MRI shows a right L3-L4 disc herniation with compression of the right L4 nerve root. The herniation is 14 mm in diameter. On exam, the patient has strong and equal reflexes. She was not febrile or toxic. She was quite uncomfortable though complaining of back pain. Patient received IV Zofran, IV morphine, IV Toradol and IV Decadron. She persisted with discomfort. She was given IV Dilaudid for additional pain control. I did speak with Dr. Russell of spinal surgery. He will see the patient in consult. Given the failed outpatient management, given her increased and uncontrollable pain, she is in need of a hospital stay. I spoke with the patient and case management, the on-call hospitalist was consulted. Prior/Outside records/notes reviewed: None. Imaging/x-ray results per my interpretation: Chronic Medical/Social conditions affecting care: Care/Management discussed with: Spinal surgery-Dr. Russell. Case management and the on-call hospitalist. Level of care consideration(s): After review of the information above and other included data: --I believe the patient requires escalation of care to admission DISPOSITION: Admission Past Med/Surg History Medical History Oral contraceptive pill surveillance Vaginal delivery No significant past medical history Surgical History S/P wisdom tooth extraction History of appendectomy Family History Denies family history of Ovarian cancer Prostate cancer Myocardial infarction Breast cancer Colorectal cancer Social History Smoking Status: Never smoker Second Hand Exposure: No; Do You Dip or Chew Tobacco: No; Hx Alcohol Use: No Hx Substance Use: No Preferred Language: [place] Hearing Ability: Normal [place] Worker Required: No Beliefs That Will Affect Care: None marital status: marital status details: Garrett (32) [phone] Current Living Situation: Spouse Current Living Situation Comment: lives with spouse, no pets current occupational status: employed current occupation: RN in ED at [employer] How many Children do You have: 0 Feels Safe at Home: Yes Childhood Exposure to Second-Hand Smoke: Yes Diet: regular caffeine: Yes Dental Care, Regularly: Yes Physical Activity Frequency: 1-2 Times per Week Seatbelt Use: always Sunscreen Use: Yes Assistive Devices: None Allergies Allergies Allergy/AdvReac Type Severity Reaction Status Date / Time No Known Allergies Allergy Verified 01/16/23 10:57 Home Meds Home Medications Medication Instructions Recorded Confirmed docusate sodium 50 mg capsule 100 mg PO QAM 11/28/22 09/27/23 famotidine 20 mg tablet 20 mg PO DAILY PRN Other 11/28/22 09/27/23 acetaminophen 500 mg tablet 1,000 mg PO Q6H PRN pain/fever 09/27/23 09/27/23 cyclobenzaprine 10 mg tablet 10 mg PO HS PRN muscle spasm 09/27/23 09/27/23 fluticasone propionate 50 2 spray intranasal DAILY PRN Other 09/27/23 09/27/23 mcg/actuation nasal spray,suspension ibuprofen 800 mg tablet 800 mg PO Q6H PRN pain/fever 09/27/23 09/27/23 norgestimate-ethinyl estradiol 1 tab PO QAM 09/27/23 09/27/23 0.18 mg/0.215mg/0.25mg-35 mcg(28)tablet (Tri-Sprintec (28)) pantoprazole 20 mg tablet,delayed 20 mg PO DAILY 09/27/23 09/27/23 release (Protonix) prednisone 10 mg tablet 10 mg PO UD 09/27/23 09/27/23 valacyclovir 1 gram tablet 2,000 mg PO Q12H PRN Cold Sores 09/27/23 09/27/23 Results & Data (ED) Vital Signs Vital Signs - 24 hr 09/27/23 09:14 09/27/23 12:00 09/27/23 14:00 Temperature 36.5 C Temperature Source Temporal Artery Scan Pulse Rate 97 H Pulse Rate [Apical] 68 67 Respiratory Rate 18 18 18 Respiratory Effort / Characteristics Non-Labored Non-Labored Spontaneous Non-Labored Spontaneous Respiratory Depth Normal Normal Normal Respiratory Pattern Regular Regular Regular Blood Pressure 159/106 H Blood Pressure [Right Arm] 145/101 H 141/94 H Blood Pressure Mean 123 Blood Pressure Mean [Right Arm] 115 109 Blood Pressure Position [Right Arm] Sitting Pulse Oximetry 99 97 94 Oxygen Delivery Method Room Air Room Air Room Air Sepsis Recent Fever Within 48 Hours No Sepsis New/Unexplained Change in Mental Status N/A Sepsis Action Taken by Nursing No Action Required Home Medications Current Medication List: was personally reviewed by me Laboratory Data Attestation: I reviewed the patient's lab results. 09/27/23 09:48 09/27/23 09:48 Lab Results 09/27/23 Range/Units 09:48 WBC 7.10 (4.8-10.8) K/ul RBC 4.58 (4.20-5.40) M/uL Hgb 12.4 (12.0-16.0) g/dl Hct 40.4 (37.0-47.0) % MCV 88.2 (80.0-100.0) fL MCH 27.1 (25.0-34.0) pg MCHC 30.7 L (32.0-36.0) g/dL RDW Std Deviation 44.5 (36.4-46.3) fL RDW Coeff of Camryn 13.8 (11.5-14.5) % Plt Count 360 (130-400) K/uL MPV 9.5 (9.4-12.4) fL Immature Gran % (Auto) 0.3 % Neut % (Auto) 62.1 % Lymph % (Auto) 29.2 % [place] % (Auto) 6.3 % Eos % (Auto) 1.5 % Baso % (Auto) 0.6 % Neut # (Auto) 4.41 (1.40-6.50) K/uL Lymph # (Auto) 2.07 (1.20-3.40) K/uL [place] # (Auto) 0.45 (0.11-0.59) K/uL Eos # (Auto) 0.11 (0.00-0.50) K/uL Baso # (Auto) 0.04 (0.00-0.20) K/uL Immature Gran # (Auto) 0.02 (0.01-0.20) K/uL Sodium 140 (136-145) mmol/L Potassium 3.7 (3.5-5.1) mmol/L Chloride 104 (98-107) mmol/L Carbon Dioxide 26 (21-32) mmol/L Anion Gap 10 (3-11) BUN 13 (6-23) mg/dl Creatinine 0.72 (0.6-1.2) mg/dl Est Cr Clr Drug Dosing 126.7 ml/min Est GFR ( Amer) 126.6 ml/min Est GFR (Non-Af Amer) 109.3 ml/min BUN/Creatinine Ratio 18.1 (10-20) Glucose 93 (70-99(Fasting)) mg/dl Calcium 9.2 (8.6-10.3) mg/dl HCG, Qual Negative (Negative) Administered Medications Hydromorphone HCl (Hydromorphone Inj 0.5 Mg/0.5 Ml Syr) 0.5 mg IV Q15M PRN PRN Reason: Pain Stop: 10/11/23 12:25 Last Admin: 09/27/23 13:40 Dose: 0.5 mg Documented By: MMG Discontinued Medications Dexamethasone Sodium Phosphate (DexamethasonePf 10 Mg/Ml Vial) 6 mg IV NOW ONE Stop: 09/27/23 09:28 Last Admin: 09/27/23 09:39 Dose: 6 mg Documented By: ML Hydromorphone HCl (Hydromorphone Inj 1 Mg/Ml Syringe) 1 mg IV NOW STA Stop: 09/27/23 10:11 Last Admin: 09/27/23 10:14 Dose: 1 mg Documented By: ML Hydromorphone HCl (Hydromorphone Inj 0.5 Mg/0.5 Ml Syr) 0.5 mg IV NOW STA Stop: 09/27/23 12:27 Last Admin: 09/27/23 12:32 Dose: 0.5 mg Documented By: ACE Ketorolac Tromethamine (Ketorolac Tromethamine 15 Mg/Ml Vial) 10 mg IV NOW ONE Stop: 09/27/23 09:28 Last Admin: 09/27/23 09:39 Dose: 10 mg Documented By: ML Morphine Sulfate (Morphine Sulfate 4 Mg/Ml 1 Ml Carp\Vial) 4 mg IV NOW STA Stop: 09/27/23 09:28 Last Admin: 09/27/23 09:39 Dose: 4 mg Documented By: ML Ondansetron HCl (Ondansetron Inj 2 Mg/Ml 2 Ml Vial) 4 mg IV NOW STA Stop: 09/27/23 09:28 Last Admin: 09/27/23 09:40 Dose: 4 mg Documented By: ML Imaging Data Radiologist's Impression: Lumbar Spine MRI 09/27/23 09:27 LUMBAR SPINE MRI HISTORY: Lower back pain. worsening pain for months, R>L TECHNIQUE: Multiplanar multisequence MRI of the lumbar spine was performed without the use of contrast. COMPARISON: Lumbar spine radiograph 09/17/2023. FINDINGS: For the purpose of the report the L5-S1 disc space will be located on axial image . There is 4 mm of anterolisthesis of L5 on S1. No acute fractures within the lumbar spine. A few small T2 hyperintense foci within the vertebral bodies are indeterminate but likely benign. The visualized sacrum is intact. Paravertebral soft tissues are unremarkable. Mild disc space narrowing and disc desiccation at L3-L4 and L5-S1. Remaining disc spaces are preserved. The conus remains at the T12-L1 disc space level. L1-L2: No significant central canal or neural foraminal narrowing. L2-L3: No significant central canal or neural foraminal narrowing. L3-L4: There is a 14 x 5 mm right paracentral focal disc protrusion which abuts and displaces the transiting right L4 nerve root. This results in mild right- sided central canal narrowing. No significant neural foraminal narrowing. L4-L5: No significant central canal or neural foraminal narrowing. L5-S1: Small broad-based posterior disc bulge asymmetric to the left with a small left paracentral annular tear. This abuts but does not displace the transiting left S1 nerve roots. No significant central canal or right-sided neural foraminal narrowing. There is mild left-sided neural foraminal narrowing. IMPRESSION: 1. No fractures within the lumbar spine. 2. There is a 14 x 5 mm right paracentral focal disc protrusion at L3-L4 which abuts and displaces the transiting right L4 nerve root. 3. Additional degenerative changes as described above. ACT 112: Negative or not required by law. Electronically signed by: Nadeem Cosme M.D. 09/27/2023 12:01 PM Discharge Plan Visit Data Chief Complaint: Back Injury/Pain Stated Complaint: LOWER BACK PAIN ED Provider: Corey Rothman Discharge Problem: Lower back pain, Failure of outpatient treatment, Lumbar disc herniation Patient Disposition: Admitted As Inpatient Condition: Fair Forms Stand Alone Forms: [facility] Prescriptions Prescriptions: No Action famotidine 20 mg Tablet 20 mg PO DAILY PRN (Reason: Other) docusate sodium 50 mg Capsule 100 mg PO QAM cyclobenzaprine 10 mg tablet 10 mg PO HS PRN (Reason: muscle spasm ) prednisone 10 mg tablet 10 mg PO UD Rx Instructions: TAKE 5 TABLETS BY MOUTH DAILY FOR 2 DAYS THEN 4 TABLETS DAILY FOR 2 DAYS THEN 3 TABLETS DAILY FOR 2 DAYS THEN 2 TABLETS DAILY FOR 2 DAYS THEN 1 TABLET DAILY FOR 2 DAYS ibuprofen 800 mg Tablet 800 mg PO Q6H PRN (Reason: pain/fever) valacyclovir 1 gram tablet 2,000 mg PO Q12H PRN (Reason: Cold Sores) acetaminophen [Tylenol Ex Str Rapid Release] 500 mg Tablet 1,000 mg PO Q6H PRN (Reason: pain/fever) pantoprazole [Protonix] 20 mg Tablet,Delayed Release (Dr/Ec) 20 mg PO DAILY fluticasone propionate 50 mcg/actuation spray,suspension 2 spray INTRANASAL DAILY PRN (Reason: Other) norgestimate-ethinyl estradiol [Tri-Sprintec (28)] 0.18/0.215/0.25 mg-35 mcg (28) tablet 1 tab PO QAM Referrals Referrals: Gloria Chavarria DO [Primary Care Provider] - Discharge Problem: Lower back pain Qualifiers: Chronicity: acute Back pain laterality: right Sciatica presence: without sciatica Qualified Code(s): M54.50 - Low back pain, unspecified
[2023-09-27] MEDS: MoRPHine SULFATE 4 MG/ML 1 ML CARP\\VIAL IV STA (09:39)
[2023-09-27] MEDS: KETOROLAC TROMETHAMINE 15 MG/ML VIAL IV ONE (09:39)
[2023-09-27] MEDS: dexAMETHasone**PF** 10 MG/ML VIAL IV ONE (09:39)
[2023-09-27] MEDS: ONDANSETRON INJ 2 MG/ML 2 ML VIAL IV STA (09:40)
[2023-09-27 10:05] LABS: Basophils # (auto) 0.04 K/uL (0.00-0.20); Basophils % (auto) 0.6 %; Eosinophils # (auto) 0.11 K/uL (0.00-0.50); Eosinophils % (auto) 1.5 %; Hematocrit (blood only) 40.4 % (37.0-47.0); Hemoglobin 12.4 g/dl (12.0-16.0); Immature Granulocytes # (auto) 0.02 K/uL (0.01-0.20); Immature Granulocytes % (auto) 0.3 %; Lymphocytes # (auto) 2.07 K/uL (1.20-3.40); Lymphocytes % (auto) 29.2 %; Mean Corpuscular Hemoglobin 27.1 pg (25.0-34.0); Mean Corpuscular Hgb Conc 30.7 g/dL (32.0-36.0); Mean Corpuscular Volume 88.2 fL (80.0-100.0); Mean Platelet Volume 9.5 fL (9.4-12.4); Monocytes # (auto) 0.45 K/uL (0.11-0.59); Monocytes % (auto) 6.3 %; Neutrophils # (auto) 4.41 K/uL (1.40-6.50); Neutrophils % (auto) 62.1 %; Platelet Count 360 K/uL (130-400); RDW Coefficient of Variation 13.8 % (11.5-14.5); RDW Standard Deviation 44.5 fL (36.4-46.3); Red Blood Count 4.58 M/uL (4.20-5.40)
[2023-09-27] MEDS: HYDROmorphone INJ 1 MG/ML SYRINGE IV STA (10:14)
[2023-09-27 10:22] LABS: BUN Creatinine Ratio 18.1 (10-20); Calcium 9.2 mg/dl (8.6-10.3); Creatinine Clr Calc Pharmacy 126.7 ml/min; Est GFR (African American) 126.6 ml/min; Est GFR (Non-African American) 109.3 ml/min; Potassium 3.7 mmol/L (3.5-5.1)
[2023-09-27 10:23] LABS: Pregnancy Test, Serum Negative (Negative)
--- OUTSIDE RECORDS SUMMARY | 2023-09-27 10:24 | External Medical Summary | Summary of Care ---
Author Name Unknown Organization [facility] Address [address] [facility] [place] [address] Phone [phone] Care Team Providers Care Central Sterile Technician Name Role Phone Gloria Chavarria DO Primary Care Provider [phone] Reason for Referral * Evaluate & Treat - Unlimited Visits (Within 10 days (routine)) - Pending Review Specialty Diagnoses / Procedures Referred By Nancy melgoza Referred To Contact Physical Therapy / Physical Medicine And Rehab Diagnoses Chronic bilateral low back pain without sciatica Kayla Lim PA-C [address] [place] [address] Referral ID Status Reason Start Date Expiration Date Visits Requested Visits Authorized [id number] Pending Review Specialty Services Required 09/24/[phone] Question Answer Referral Priority Within 10 days (routine) Where should this appointment be scheduled? [facility] Reason for Visit * Reason Comments Other Injured lower back i n Valerio, has been to chiropractor and virtual through [facility], took prednisone, pt states it never made it go away 100%, is now flared again for lower back pain. Pt states having trouble finding comfort. Taking ibuprofen and muscle relaxer before bed last night. State spasming whole lower back. Encounter Details Date Type Department Care Team (Latest Contact Info) Description 09/24/2023 6:15 PM EDT Convenient Care Visit [facility] [address] [place] [address] Kayla Lim PA-C [address] [place] [address] Chronic bilateral low back pain without sciatica* Allergies No known active allergiesdocumented as of this encounter (statuses as of 09/25/2023) Medications Medication Sig Dispensed Refills Start Date End Date Status valACYclovir HCl 1 GM Oral Tablet (Valtrex)Indication s:Recurrent cold sores TAKE 2 TABS EVERY 12 HOURS FOR 1 DAY FOR COLD SORES 30 Tablet 1 05/14/2023 Active Norgestim-Eth Estrad Triphasic 0.18/0.215/0.25 MG-35 MCG Oral Tablet Take 1 Tablet by mouth in the morning. 0 04/05/2023 Active Fluticasone Propionate 50 MCG/ACT Nasal Suspension (Flonase)Indication s:Acute sinusitis, recurrence not specified, unspecified location SPRAY 2 SPRAYS INTO EACH NOSTRIL ONE TIME DAILY 16 mL 3 08/30/2023 Active Benzonatate 100 MG Oral CapsuleIndications: Viral URI with cough Take 2 Capsules by mouth 3 times a day as needed for Cough. 30 Capsule 1 09/10/2023 Active Additional Information Patient not taking.Reported on 09/24/2023 predniSONE 10 MG Oral Tablet (Deltasone)Indicati ons:Chronic bilateral low back pain without sciatica Take 5 tabs for 2 days, 4 tabs for 2 days, 3 tabs for 2 days, 2 tabs for 2 days 1 tab for 2 days 30 Tablet 0 09/24/2023 Active Cyclobenzaprine HCl 10 MG Oral Tablet (Flexeril)Indicatio ns:Chronic bilateral low back pain without sciatica Take 1 Tablet by mouth 2 times a day as needed for Muscle spasms. 20 Tablet 0 09/24/2023 Active documented as of this encounter (statuses as of 09/25/2023) Active Problems Problem Noted Date Diagnosed Date UTI symptoms 03/06/2022 Irritable bowel syndrome wit h both constipation and diarrhea 09/10/2018 Allergic rhinitis documented as of this encounter (statuses as of 09/25/2023) Resolved Problems Problem Noted Date Diagnosed Date Resolved Date Acute appendicitis 03/21/2011 9 ACUTE PHARYNGITIS 07/01/2002 08/25/2008 Overview: Resolved per Benign Acute Dxs Protocol #3 ACUTE URI NOS 07/01/2002 08/18/2008 Overview: Resolved per Benign Acute Dxs Protocol #3 documented as of this encounter (statuses as of 09/25/2023) Immunizations Name Administration Dates Next Due COVID-19 mRNA, LNP-s, No Pre serve, 2-Dose Series (Moderna) 07/26/2020,06/28/2020 DTP Vaccine 03/24/1995, 1,1989,10/1989,1989 HEP A - Hepatitis A (Adult > 18 yrs) 01/09/2017 HEP B - Hepatitis B (Adole/H igh Risk Ped, 11-15 yrs 08/20/2000,03/12/2000,02/11/2000 HIB PRP-OMP, 3 dose (Pedvax) 03/15/1991,06/05/19 90 HPV Vaccine, 4-Valent 09/24/2012,05/28/2012,02/2804/17/2012 MMR - Measles/Mumps/Rubella Vaccine 02/11/2000,1 1989 Meningococcal Conjugate Vacc ine (Menactra/Menveo) 01/09/2017,10/17/2006 OPV - Polio Virus Vaccine (Oral) 995,09/04/1990,1989,07/1988 PPD 01/24/2017,01/17/2017,09/06/2009 Seasonal Influenza, PF, 6 M & above, IM , (FluLaval or Fluzone) 04/06/2018 Seasonal Influenza, Split, I IV3, With Preserve, Inj 02/17/2014 TDAP (age 10 and older)(Boostrix) 04/03/2016,02/27/2015 Varicella Vaccine (Chicken Pox) 10/17/2006,03/12 documented as of this encounter Social History Tobacco Use Types Packs/Day Years Used Date Smoking Tobacco: Never Passive Smoke Exposure: Past Smokeless Tobacco: Never Tobacco Cessation:Counseling Given: Not Answered Alcohol Use Standard Drinks/Week Comments Yes 0 (1 standard drink = 0.6 oz pur e alcohol) occ PHQ-2 Answer Date Recorded PHQ Adult Total Score 0 01/06/2023 Hunger Vital Sign Answer Date Recorded Within the past 12 months, y ou worried that your food would run out before you got the money to buy more. Never true 01/07/20 23 Within the past 12 months, t he food you bought just didn't last and you didn't have money to get more. Never true 01/06/2023 Sex and Gender Information Value Date Recorded Sex Assigned at Female 06/19/2023 5:07 PM EST Gender Identity Female 06/19/2023 5:07 PM EST Sexual Orientation Straight 01/22/2019 12 :54 PM EDT Job Start Date Occupation Industry Not on file Not on file Not on file documented as of this encounter Last Filed Vital Signs Vital Sign Reading Time Taken Comments Blood Pressure 124/86 09/24/2023 6:24 PM EDT Pulse 96 09/24/2023 6:24 PM EDT Temperature 36.6 C (97.9 F) 09/24/2023 6:24 PM ED T Respiratory Rate 16 09/24/2023 6:24 PM EDT Oxygen Saturation - - Inhaled Oxygen Concentration - - Weight 89.4 kg (197 lb) 09/24/2023 6:24 PM EDT Height - - Body Mass Index 29.95 06/21/2023 4:10 PM EST documented in this encounter Progress Notes * Alexandria Schmidt LPN - 09/25/2023 9:14 AM EDT [facility] radiology called (Ara) with stat imaging of L spine No fracture Mild ddd L5-S1 Will fax final report * Kayla Lim PA-C - 09/24/2023 6:25 PM EDT Images from the original note were not included. Nursing Notes: Kenya Stoll LPN 09/24/23 1824 Sign at exiting of workspace Chief Complaint Patient presents with Other Injured lower back in Jun, has been to chiropractor and virtual through [facility], took prednisone,pt states it never made it go away 100%, is now flared again for lower back pain. Pt states having trouble finding comfort. Taking ibuprofen and muscle relaxer before bed last night. State spasming whole lower back. History of Present Illness María De La Paz is a 33 year old female that presents for Other (Injured lower back in Jun, has been to chiropractor and virtual through [facility], took prednisone, pt states it never made it go away 100%, is now flared again for lower back pain. Pt states having trouble finding comfort. Taking ibuprofen and muscle relaxer before bed last night. State spasming whole lower back. ) C/o low back pain across lower back, bilateral, radiating to bilateral hips, fluctuating intensity x 3 months. Pain is constant, dull, aching, throbbing, spasm. Better in AM, worsens throughout the day. Limited flexion, difficulty bending over/forward. Recalls that right before she was changing her sons diaper on the floor with her legs stretched out, leaned forward to grab a wipe, and felt a pull in her low back. A few days later she felt more pain, spasm in the low back. Denies any other injury, no falls. Had chiropractor adjustments 2 months ago for multiple visits and again recently in the past week. Was treated by virtual telemedicine 2 months ago with prednisone and flexeril. Marina 80-90% improvement with prednisone but never completely went away. Has taken about 10 tabs flexeril in past 2 months. Denies radiating pain to the legs, denies any numbness, tingling, weakness. No abd pain, n/v/d/c, change in bowels, urinary symptoms, bowel or bladder incontinence, saddle anesthesia. Patient Active Problem List Diagnosis Code Allergic rhinitis J30.9 Irritable bowel syndrome with both constipation and diarrhea K58.2 UTI symptoms R39.9 Current Outpatient Medications Medication Sig Dispense Refill valACYclovir HCl 1 GM Oral Tablet (Valtrex) TAKE 2 TABS EVERY 12 HOURS FOR 1 DAY FOR COLD SORES 30 Tablet 1 Norgestim-Eth Estrad Triphasic 0.18/0.215/0.25 MG-35 MCG Oral Tablet Take 1 Tablet by mouth in the morning. Fluticasone Propionate 50 MCG/ACT Nasal Suspension (Flonase) SPRAY 2 SPRAYS INTO EACH NOSTRIL ONE TIME DAILY 16 mL 3 predniSONE 10 MG Oral Tablet (Deltasone) Take 5 tabs for 2 days, 4 tabs for 2 days, 3 tabs for 2 days, 2 tabs for 2 days 1 tab for 2 days 30 Tablet 0 Cyclobenzaprine HCl 10 MG Oral Tablet (Flexeril) Take 1 Tablet by mouth 2 times a day as needed forMuscle spasms. 20 Tablet 0 Benzonatate 100 MG Oral Capsule Take 2 Capsules by mouth 3 times a day as needed for Cough. (Patient not taking: Reported on 09/24/2023) 30 Capsule 1 No current facility-administered medications for this visit. Past Medical History: Diagnosis Date Acute appendicitis 03/21/2011 Allergic rhinitis Irritable bowel syndrome with both constipation and diarrhea 09/10/2018 Kidney stones Other acne Physical Exam Vitals: 09/24/23 1824 Temp: 36.6 C (97.9 F) Pulse: 96 Resp: 16 BP: 124/86 BP Readings from Last 3 Encounters: 09/24/23 124/86 09/10/23 112/68 06/21/23 108/76 Wt Readings from Last 3 Encounters: 09/24/23 89.4 kg (197 lb) 09/10/23 90.4 kg (199 lb 3.2 oz) 06/21/23 88.9 kg (196 lb) BMI Readings from Last 3 Encounters: 09/24/23 29.95 kg/m 09/10/23 30.29 kg/m 06/21/23 29.80 kg/m Ht Readings from Last 3 Encounters: 06/21/23 1.727 m (5' 8") 01/06/23 1.727 m (5' 8") 03/06/22 1.727 m (5' 8") Physical Exam Vitals and nursing note reviewed. Constitutional: General: She is not in acute distress. Appearance: Normal appearance. She is not ill-appearing, toxic-appearing or diaphoretic. Abdominal: General: There is no distension. Palpations: There is no mass. Tenderness: There is no abdominal tenderness. There is no guarding. Hernia: No hernia is present. Musculoskeletal: Lumbar back: Spasms and tenderness present. No swelling, edema, deformity, lacerations or bony tenderness. Decreased range of motion. Comments: Limited forward flexion, standing in exam room due to discomfort, limited rotation Neurological: Mental Status: She is alert. I have reviewed the following results: None Assessment and Plan Chronic bilateral low back pain without sciatica - predniSONE 10 MG Oral Tablet (Deltasone); Take 5 tabs for 2 days, 4 tabs for 2 days, 3 tabs for 2days, 2 tabs for 2 days 1 tab for 2 days - Cyclobenzaprine HCl 10 MG Oral Tablet (Flexeril); Take 1 Tablet by mouth 2 times a day as needed for Muscle spasms. - PHYSICAL THERAPY REFERRAL OP - XR L SPINE AP AND LATERAL Wrap-Up Follow Up: Return if symptoms worsen or fail to improve, for advised to f/u with PCP if pain persists on no improvement with PT. | For: advised to f/u with PCP if pain persists on no improvement withPT Kayla Lim PA-C documented in this encounter Nursing Notes * Kenya Stoll LPN - 09/24/2023 6:23 PM EDT Chief Complaint Patient presents with Other Injured lower back in Jun, has been to chiropractor and virtual through [facility], took prednisone,pt states it never made it go away 100%, is now flared again for lower back pain. Pt states having trouble finding comfort. Taking ibuprofen and muscle relaxer before bed last night. State spasming whole lower back. documented in this encounter Plan of Treatment Upcoming Encounters Date Type Department Care Team (Late st Contact Info) Description 01/08/2024 8:10 AM EDT Office Visit Merged With [facility] [address] [facility] [place] [id number] Gloria [facility]arria [facility] [address] [facility] [address] Scheduled Orders Name Type Priority Associated Diagnoses Orde r Schedule XR L SPINE AP AND LATERAL Medical Imaging STAT Chronic bilateral low back pain without sciatica Ordered: 09/24/2023 Scheduled Referrals Name Type Priority Associated Diagnoses Orde r Schedule PHYSICAL THERAPY REFERRAL OP Referral Within 10 days (routine) Chronic bilateral low back pain without sciatica Ordered: 09/24/2023 Health Maintenance Due Date Last Done Comments HIV Screening 2004 Hepatitis C Screening 2007 HPV/Co-Test 2019 COVID-19 Vaccine ( season) 2023 07/26/2020, 06/28/2020 Cervical Cancer Screening 04/10/2023 Pap Smear 04/10/2023 04/10/2020, 01/2018, 04/10/2015, Additional history exists Depression Screening 01/07/2024 01/06/2023 DTaP,Tdap,and Td Vaccines (8 - Td or Tdap) 04/03/2026 04/03/2016, 02/27/2005, 03/24/1995, Additional history exists Hepatitis B Completed 08/20/2000, 02/28, 02/11/2000 GARDASIL-HPV IMMUNIZATION SERIES Completed 09/24/2012, 05/28/2012, 03/18/2012 MENINGOCOCCAL (MENACTRA/MENVEO) Completed 01/09/2017, 01/09/2017, 10/17/2006, Additional history exists Influenza Vaccine (FLU shot) Completed , 04/26/2022, 04/11/2021, Additional history exists Pneumococcal Vaccine: Pediatrics (0 to 5 Years) and At-Risk Patients (6 to 64 Years) Aged Out No longer eligible based on patient's age to complete this topic documented as of this encounter Medical Devices Not on filedocumented as of this encounter Visit Diagnoses Diagnosis Chronic bilateral low back pain without sciatica- Primary documented in this encounter Care Teams Central Sterile Technician Relationship Specialty Start Date End Date Gloria Chavarria DO [address] [place] [address] PCP - General Family Medicine 03/23/13 documented as of this encounter
--- NOTE | 2023-09-27 12:02 | Magnetic Resonance Report ---
LUMBAR SPINE MRI HISTORY: Lower back pain. worsening pain for months, R>L TECHNIQUE: Multiplanar multisequence MRI of the lumbar spine was performed without the use of contras t. COMPARISON: Lumbar spine radiograph 09/17/2023. FINDINGS: For the purpose of the report the L5-S1 disc space will be located on axial image 27 of 30. There is 4 mm of anterolisthesis of L5 on S1. No acute fractures within the lumbar spine. A few small T2 hyperintense foci within the vertebral bodies are indeterminate but likely benign. The visualized sacrum is intact. Paravertebral soft tissues are unremarkable. Mild disc space narrowing and disc de siccation at L3-L4 and L5-S1. Remaining disc spaces are preserved. The conus remains at the T12-L1 di sc space level. L1-L2: No significant central canal or neural foraminal narrowing. L2-L3: No significant central canal or neural foraminal narrowing. L3-L4: There is a 14 x 5 mm right paracentral focal disc protrusion which abuts and displaces the tra nsiting right L4 nerve root. This results in mild right-sided central canal narrowing. No significant neural foraminal narrowing. L4-L5: No significant central canal or neural foraminal narrowing. L5-S1: Small broad-based posterior disc bulge asymmetric to the left with a small left paracentral an nular tear. This abuts but does not displace the transiting left S1 nerve roots. No significant centr al canal or right-sided neural foraminal narrowing. There is mild left-sided neural foraminal narrowi ng. IMPRESSION: 1. No fractures within the lumbar spine. 2. There is a 14 x 5 mm right paracentral focal disc protrusion at L3-L4 which abuts and displaces th e transiting right L4 nerve root. 3. Additional degenerative changes as described above. ACT 112: Negative or not required by law. Electronically signed by: Nadeem Cosme M.D. 09/27/2023 12:01 PM
[2023-09-27] MEDS: HYDROmorphone INJ 0.5 MG/0.5 ML SYR IV STA (12:32)
--- NOTE | 2023-09-27 13:28 | History & Physical Report ---
Date of Service September 27, 2023 Assessment & Plan (1) Lumbar radiculopathy, acute: Plan: Has significant 14 x 5 mm right paracentral focal disc protrusion at L3-L4 which abuts and displaces the transiting right L4 nerve root No bladder and/or bowel problem No weakness involving the right leg She was a started with intravenous Toradol and Dilaudid with Flexeril as needed Prednisone dose will be continued as an outpatient Orthospine has been consulted for further evaluation and recommendation (2) Oral contraceptive pill surveillance: Plan: Will hold contraceptive pill for now DVT prophylaxis Subcu heparin CODE STATUS Full History of Present Illness Chief Complaint: Low back pain with radiation to buttock Primary Care Provider: Gloria Chavarria DO She is a 33-year-old female without significant past medical history has been complaining of a low back pain mostly on the right side with radiation to the buttock for the last 3 months. The pain and the radiation has been worse for the last few weeks and she has been to her primary care doctor and also chiropractor for help. Her pain is in the right lower back and the with radiation to the right buttock check and it does not go below that level. Denies any numbness and or tingling involving the lower extremities and denies any weakness involving the right leg. She does not have any problem with urine or bowel habit. She was in her doctor's office recently on is given prednisone with minimal help and also Flexeril which has not been helping as well. She has been on ibuprofen 800 mg 3 times daily as needed and also Tylenol 1000 mg be 3 times daily without much benefit. The pain has been really worse for the last 3 days that she is here for help. MRI of the lumbar spine did show disc protrusion involving L3-L4 with pressure on the L4 nerve root. She was given pain medications and a dose of dexamethasone and spine surgery was consulted for further recommendation. Allergies Allergy/AdvReac Type Severity Reaction Status Date / Time No Known Allergies Allergy Verified 01/16/23 10:57 Home Medications Medication Instructions Recorded Confirmed Type docusate sodium 50 mg capsule 100 mg PO QAM 11/28/22 09/27/23 History famotidine 20 mg tablet 20 mg PO DAILY PRN Other 11/28/22 09/27/23 History acetaminophen 500 mg tablet 1,000 mg PO Q6H PRN pain/fever 09/27/23 09/27/23 History cyclobenzaprine 10 mg tablet 10 mg PO HS PRN muscle spasm 09/27/23 09/27/23 History fluticasone propionate 50 2 spray intranasal DAILY PRN Other 09/27/23 09/27/23 History mcg/actuation nasal spray,suspension ibuprofen 800 mg tablet 800 mg PO Q6H PRN pain/fever 09/27/23 09/27/23 History norgestimate-ethinyl estradiol 1 tab PO QAM 09/27/23 09/27/23 History 0.18 mg/0.215mg/0.25mg-35 mcg(28)tablet (Tri-Sprintec (28)) pantoprazole 20 mg tablet,delayed 20 mg PO DAILY 09/27/23 09/27/23 History release (Protonix) prednisone 10 mg tablet 10 mg PO UD 09/27/23 09/27/23 History valacyclovir 1 gram tablet 2,000 mg PO Q12H PRN Cold Sores 09/27/23 09/27/23 History Past Med/Surg History Medical History (Updated 09/27/23 @ 13:25 by Isai Vogel MD) Oral contraceptive pill surveillance Vaginal delivery No significant past medical history Surgical History S/P wisdom tooth extraction History of appendectomy Family History Denies family history of Ovarian cancer Prostate cancer Myocardial infarction Breast cancer Colorectal cancer Social History (Updated 04/16/22 @ 11:40 by Kayla Whittaker) Smoking Status: Never smoker Second Hand Exposure: No; Do You Dip or Chew Tobacco: No; Hx Alcohol Use: No Hx Substance Use: No Preferred Language: Greenlandic Hearing Ability: Normal Clothing Supervisor Required: No Beliefs That Will Affect Care: None marital status: marital status details: Garrett ([phone] Current Living Situation: Spouse Current Living Situation Comment: lives with spouse, no pets current occupational status: employed current occupation: RN in ED at [employer] How many Children do You have: 0 Feels Safe at Home: Yes Childhood Exposure to Second-Hand Smoke: Yes Diet: regular caffeine: Yes Dental Care, Regularly: Yes Physical Activity Frequency: 1-2 Times per Week Seatbelt Use: always Sunscreen Use: Yes Assistive Devices: None Review of Systems Review of Systems: All systems reviewed and are unremarkable as mentioned in H&P Physical Exam Physical Exam: Sitting on a chair without any acute distress Constitutional: well developed, well nourished, + ill appearing and + obese Eyes: PERRL, conjunctivae normal, anicteric sclerae ENMT: external ear and nose normal, oropharynx normal Neck: trachea midline, no thyromegaly Respiratory: no respiratory distress Auscultation: + lungs not clear to auscultation Cardiovascular: Rate/Rhythm: regular rate and regular rhythm; not tachycardic Heart Sounds: normal S1 and normal S2; no murmur Extremities: no edema Gastrointestinal (Abdomen): Inspection/Auscultation: normal bowel sounds; abdomen not distended Percussion/Palpation: abdomen soft; abdomen nontender Musculoskeletal: Localized tenderness lower back. No other acute arthritis involving any of the joint Neurologic: normal touch/pain/proprioception and moves all extremities; no focal motor deficits Psychiatric: A+Ox3, euthymic affect Lymphatic: no cervical or axillary lymphadenopathy Results & Data Results & Data Vital Signs (Past 12 Hours) Vital Signs Temp Pulse Pulse Resp BP BP Pulse Ox 09/27/23 12:00 68 18 145/101 H 97 09/27/23 09:14 36.5 C 97 H 18 159/106 H 99 O2 Del Method 09/27/23 12:00 Room Air 09/27/23 09:14 Room Air Laboratory Results Short CBC 09/27/23 Range/Units 09:48 WBC 7.10 (4.8-10.8) K/ul Hgb 12.4 (12.0-16.0) g/dl Hct 40.4 (37.0-47.0) % Plt Count 360 (130-400) K/uL BMP 09/27/23 09:48 Sodium 140 Potassium 3.7 Chloride 104 Carbon Dioxide 26 BUN 13 Creatinine 0.72 Glucose 93 Calcium 9.2 Medications Administered Current Inpatient Medications Hydromorphone HCl (Hydromorphone Inj 0.5 Mg/0.5 Ml Syr) 0.5 mg IV Q15M PRN PRN Reason: Pain Stop: 10/11/23 12:25 Code Status & VTE Plan VTE Prophylaxis Plan VTE Prophylaxis will be ordered: Yes
[2023-09-27] MEDS: HYDROmorphone INJ 0.5 MG/0.5 ML SYR IV PRN ×2 (13:40→19:24)
[2023-09-27] MEDS ORDERED: FLUTICASONE PROPIONATE NA SPR 16 GM BTL PRN (16:36)
[2023-09-27] MEDS ORDERED: ONDANSETRON INJ 2 MG/ML 2 ML VIAL IV PRN (17:08)
[2023-09-27] MEDS: DOCUSATE SODIUM 100 MG CAP PO SCH (17:56)
[2023-09-27] MEDS: KETOROLAC TROMETHAMINE 15 MG/ML VIAL IV PRN (17:56)
[2023-09-27] MEDS: ACETAMINOPHEN 500 MG TAB PO PRN (19:24)
[2023-09-27] MEDS: HEPARIN SOD 5,000 UNIT/0.5 ML VIAL SQ SCH (19:25)
[2023-09-27 20:34] LABS: Appearance Urine Clear (Clear); Bilirubin Urine Negative (Negative); Blood Urine Negative (Negative); Color Urine Yellow; Glucose Urine UA Negative (Negative); Ketones Urine Negative (Negative); Leukocyte Esterase Urine Negative (Negative); Nitrite Urine Negative (Negative); Protein Urine Negative (Negative); Specific Gravity Urine 1.004 (1.000-1.030); Urobilinogen Urine Negative (Negative)
[2023-09-28] MEDS: CYCLOBENZAPRINE HCL 10 MG TAB PO PRN (01:28)
[2023-09-28] MEDS: FAMOTIDINE 20 MG TAB PO PRN (08:17)
[2023-09-28] MEDS: PANTOprazole 40 MG TAB PO SCH (08:17)
--- NOTE | 2023-09-28 10:48 | Orthopedic Consultation ---
Date of Consultation September 28, 2023 Assessment & Plan (1) Lumbar disc herniation: At this time she is responding to medications. Emphasized to the patient and her that majority of these and. Nevertheless I like to obtain x-rays today to thoroughly assess for spondylolisthesis L5-S1. Will also consult interventional pain management hopefully to see her in the morning and set up injections. Will continue her on IV Decadron. History of Present Illness Reason for Consultation: Patient complaining of back and right buttock pain Attending Physician: Isai Vogel MD History of Present Illness This is a very pleasant 29-year-old female that has approximately 3 months history of back pain. This began roughly around Armen time. It did respond initially to a course of oral steroids. It has recurred radiates into the right buttock and occasionally down the leg. Is quite limiting in nature. Left lower extremities asymptomatic. She is responding to steroids and IV narcotics to control her pain. She denies loss of bowel or bladder function. Denies any numbness or tingling lower extremity weakness. Allergies Allergy/AdvReac Type Severity Reaction Status Date / Time No Known Allergies Allergy Verified 01/16/23 10:57 Home Medications Medication Instructions Recorded Confirmed Type docusate sodium 50 mg capsule 100 mg PO QAM 11/28/22 09/27/23 History famotidine 20 mg tablet 20 mg PO DAILY PRN Other 11/28/22 09/27/23 History acetaminophen 500 mg tablet 1,000 mg PO Q6H PRN pain/fever 09/27/23 09/27/23 History cyclobenzaprine 10 mg tablet 10 mg PO HS PRN muscle spasm 09/27/23 09/27/23 History fluticasone propionate 50 2 spray intranasal DAILY PRN Other 09/27/23 09/27/23 History mcg/actuation nasal spray,suspension ibuprofen 800 mg tablet 800 mg PO Q6H PRN pain/fever 09/27/23 09/27/23 History norgestimate-ethinyl estradiol 1 tab PO QAM 09/27/23 09/27/23 History 0.18 mg/0.215mg/0.25mg-35 mcg(28)tablet (Tri-Sprintec (28)) pantoprazole 20 mg tablet,delayed 20 mg PO DAILY 09/27/23 09/27/23 History release (Protonix) prednisone 10 mg tablet 10 mg PO UD 09/27/23 09/27/23 History valacyclovir 1 gram tablet 2,000 mg PO Q12H PRN Cold Sores 09/27/23 09/27/23 History Patient History Medical History Oral contraceptive pill surveillance Vaginal delivery No significant past medical history Surgical History S/P wisdom tooth extraction History of appendectomy Family History Denies family history of Ovarian cancer Prostate cancer Myocardial infarction Breast cancer Colorectal cancer Social History Smoking Status: Never smoker Second Hand Exposure: No; Do You Dip or Chew Tobacco: No; Hx Alcohol Use: No Hx Substance Use: No Preferred Language: Wolof Communication Ability: Effective Hearing Ability: Normal Email Marketing Coordinator Required: No Beliefs That Will Affect Care: None marital status: marital status details: Garrett (32) [phone] Current Living Situation: Spouse Current Living Situation Comment: lives with spouse, no pets current occupational status: employed current occupation: RN in ED at [employer] How many Children do You have: 0 Other Information That Helps Us Care for You: No Feels Safe at Home: Yes Safety Concerns: Feels Safe At This Time Childhood Exposure to Second-Hand Smoke: Yes Diet: regular caffeine: Yes Dental Care, Regularly: Yes Physical Activity Frequency: 1-2 Times per Week Seatbelt Use: always Sunscreen Use: Yes Assistive Devices: None Physical Exam Physical Exam: On exam she is able to stand without difficulty. I did have her sit on the side of her bed. She has tension signs straight leg raising on the right with contralateral signs on the left. She exhibits +5-5 plantarflexion dorsiflexion quadriceps bilaterally. Sensory appears to be symmetric and intact. Results & Data Vital Signs (Past 12 Hours) Vital Signs Temp Pulse Pulse Resp BP Pulse Ox O2 Del Method 09/28/23 07:46 36.9 C 64 16 145/91 H 97 Room Air 09/28/23 07:36 58 L 09/28/23 03:08 36.8 C 72 16 127/84 96 Room Air 09/28/23 01:36 57 L 09/27/23 23:20 36.6 C 63 16 119/76 98 Room Air
[2023-09-28] MEDS: HYDROmorphone INJ 0.5 MG/0.5 ML SYR IV PRN (11:25)
--- NOTE | 2023-09-28 11:51 | XRay Report ---
LUMBAR SPINE 4 VIEWS CLINICAL HISTORY: Low back pain. FINDINGS: AP, lateral, flexion and extension standing views of the lumbar spine are compared to stud y dated 09/25/2023. The skeletal structures are well mineralized. There is no radiographic evidence of fracture or malalignment. Vertebral body height and alignment are maintained. There is mild hyperlor dosis. The transverse and spinous processes are intact. There is no bony subluxation on flexion/exten adonis views. There is minimal disc space narrowing at L5-S1. The remaining disc spaces appear maintain ed. The visualized bony pelvis appears intact. There is a nonobstructed abdominal bowel gas pattern. Moderate fecal retention is seen throughout the colon. IMPRESSION: No acute bony abnormality is seen involving the lumbar spine. ACT 112: Negative or not required by law. Electronically signed by: Corey Quiroga M.D. 09/28/2023 11:50 AM
--- NOTE | 2023-09-28 13:48 | Hospitalist Progress Note ---
Date of Service September 28, 2023 Assessment & Plan (1) Lumbar radiculopathy, acute: Plan: Has significant 14 x 5 mm right paracentral focal disc protrusion at L3-L4 which abuts and displaces the transiting right L4 nerve root No bladder and/or bowel problem No weakness involving the right leg She was a started with intravenous Toradol and Dilaudid with Flexeril as needed Prednisone dose will be continued as an outpatient Orthospine has been consulted for further evaluation and recommendation Appreciate orthospine input and recommendation Has been started on Decadron intravenously Pain therapist will be consulted for possible injection as an outpatient PT OT evaluation likely discharge tomorrow (2) Oral contraceptive pill surveillance: Plan: Will hold contraceptive pill for now Advised to use additional measures following discharge DVT prophylaxis Subcu heparin CODE STATUS Full Admission and Anticipated Discharge Date Admission Date: September 27, 2023 Subjective 09/28/2023 The patient was seen and examined in medical telemetry unit in presence of the significant other Her pain is much better this morning without any radiation She has been moving her bowels and denies any problem with urination Review of Systems Review of Systems: All systems reviewed and are unremarkable as mentioned in H&P Physical Exam Physical Exam: Sitting on a chair without any acute distress Constitutional: well developed, well nourished, + ill appearing and + obese Eyes: PERRL, conjunctivae normal, anicteric sclerae ENMT: external ear and nose normal, oropharynx normal Neck: trachea midline, no thyromegaly Respiratory: no respiratory distress Auscultation: + lungs not clear to auscultation Cardiovascular: Rate/Rhythm: regular rate and regular rhythm; not tachycardic Heart Sounds: normal S1 and normal S2; no murmur Extremities: no edema Gastrointestinal (Abdomen): Inspection/Auscultation: normal bowel sounds; abdomen not distended Percussion/Palpation: abdomen soft; abdomen nontender Musculoskeletal: Low back pain without any radiation today Neurologic: normal touch/pain/proprioception and moves all extremities; no focal motor deficits Psychiatric: A+Ox3, euthymic affect Lymphatic: no cervical or axillary lymphadenopathy Results & Data Results & Data Vital Signs (Past 12 Hours) Vital Signs Temp Pulse Pulse Resp BP Pulse Ox O2 Del Method 09/28/23 11:42 36.6 C 73 16 128/86 96 Room Air 09/28/23 07:46 36.9 C 64 16 145/91 H 97 Room Air 09/28/23 07:36 58 L 09/28/23 03:08 36.8 C 72 16 127/84 96 Room Air Laboratory Results Urine 09/27/23 Range/Units 20:20 Urine Color Yellow Urine Appearance Clear (Clear) Urine pH 7.0 (4.5-7.5) Ur Specific [place] 1.004 (1.000-1.030) Urine Protein Negative (Negative) Urine Glucose (UA) Negative (Negative) Medications Administered Current Inpatient Medications Acetaminophen (Acetaminophen 500 Mg Tab) 1,000 mg PO Q6H PRN PRN Reason: pain/fever Stop: 10/27/23 16:35 Last Admin: 09/28/23 08:16 Dose: 1,000 mg Cyclobenzaprine HCl (Cyclobenzaprine Hcl 10 Mg Tab) 10 mg PO HS PRN PRN Reason: muscle spasm Stop: 10/27/23 16:35 Last Admin: 09/28/23 01:28 Dose: 10 mg Docusate Sodium (Docusate Sodium 100 Mg Cap) 100 mg PO QAM [facility] Stop: 10/27/23 16:35 Last Admin: 09/28/23 08:17 Dose: 100 mg Famotidine (Famotidine 20 Mg Tab) 20 mg PO DAILY PRN PRN Reason: Heartburn Stop: 10/27/23 16:35 Last Admin: 09/28/23 08:17 Dose: 20 mg Fluticasone Propionate (Fluticasone Propionate Na Spr 16 Gm Btl) 2 sprays NA DAILY PRN PRN Reason: Other/ALLERGIES Stop: 10/27/23 16:35 Hydromorphone HCl (Hydromorphone Inj 0.5 Mg/0.5 Ml Syr) 0.25 mg IV Q6H PRN PRN Reason: Pain Stop: 10/11/23 16:35 Last Admin: 09/28/23 11:25 Dose: 0.25 mg Dexamethasone 8 mg/ Syringe 2 mls @ 1 mls/min IV Q8 ARIES Stop: 10/28/23 13:59 Ketorolac Tromethamine (Ketorolac Tromethamine 15 Mg/Ml Vial) 15 mg IV Q6H PRN PRN Reason: Pain Stop: 10/02/23 16:35 Last Admin: 09/28/23 08:16 Dose: 15 mg Ondansetron HCl (Ondansetron Inj 2 Mg/Ml 2 Ml Vial) 4 mg IV Q6H PRN PRN Reason: Nausea And Vomiting Stop: 10/27/23 17:07 Pantoprazole Sodium (Pantoprazole 40 Mg Tab) 40 mg PO DAILY [facility] Stop: 10/28/23 08:59 Last Admin: 09/28/23 08:17 Dose: 40 mg
[2023-09-28] MEDS: dexAMETHasone 8 MG in SYRINGE 0 ML IV SCH (14:07)
--- NOTE | 2023-09-29 14:15 | Hospitalist Progress Note ---
Date of Service September 29, 2023 Assessment & Plan (1) Lumbar radiculopathy, acute: Plan: Has significant 14 x 5 mm right paracentral focal disc protrusion at L3-L4 which abuts and displaces the transiting right L4 nerve root No bladder and/or bowel problem No weakness involving the right leg She was a started with intravenous Toradol and Dilaudid with Flexeril as needed Prednisone dose will be continued as an outpatient Orthospine has been consulted for further evaluation and recommendation Appreciate orthospine input and recommendation Has been started on Decadron intravenously Pain therapist will be consulted for possible injection as an outpatient PT OT evaluation likely discharge tomorrow Has been waiting to be seen by pain therapist before discharge this afternoon Pain is controlled with current regimen Will follow the instructions from the pain therapist (2) Oral contraceptive pill surveillance: Plan: Will hold contraceptive pill for now Advised to use additional measures following discharge DVT prophylaxis Subcu heparin CODE STATUS Full Admission and Anticipated Discharge Date Admission Date: September 27, 2023 Subjective 09/28/2023 The patient was seen and examined in medical telemetry unit in presence of the significant other Her pain is much better this morning without any radiation She has been moving her bowels and denies any problem with urination 09/29/2023 The patient was seen and examined in medical telemetry unit She has been feeling much better Back pain is controlled and no radiation Has been waiting to be seen by pain therapist Review of Systems Review of Systems: All systems reviewed and are unremarkable as mentioned in H&P Physical Exam Physical Exam: Sitting on a chair without any acute distress Constitutional: well developed, well nourished, + ill appearing and + obese Eyes: PERRL, conjunctivae normal, anicteric sclerae ENMT: external ear and nose normal, oropharynx normal Neck: trachea midline, no thyromegaly Respiratory: no respiratory distress Auscultation: + lungs not clear to auscultation Cardiovascular: Rate/Rhythm: regular rate and regular rhythm; not tachycardic Heart Sounds: normal S1 and normal S2; no murmur Extremities: no edema Gastrointestinal (Abdomen): Inspection/Auscultation: normal bowel sounds; abdomen not distended Percussion/Palpation: abdomen soft; abdomen nontender Neurologic: normal touch/pain/proprioception and moves all extremities; no focal motor deficits Psychiatric: A+Ox3, euthymic affect Lymphatic: no cervical or axillary lymphadenopathy Results & Data Results & Data Vital Signs (Past 12 Hours) Vital Signs Temp Pulse Pulse Resp BP BP Pulse Ox 09/29/23 11:20 36.9 C 78 16 144/95 H 96 09/29/23 08:35 09/29/23 07:33 36.7 C 69 18 151/97 H 98 09/29/23 07:24 56 L 09/29/23 02:53 36.4 C L 56 L 16 138/88 98 O2 Del Method 09/29/23 11:20 Room Air 09/29/23 08:35 Room Air 09/29/23 07:33 Room Air 09/29/23 07:24 09/29/23 02:53 Room Air Medications Administered Current Inpatient Medications Acetaminophen (Acetaminophen 500 Mg Tab) 1,000 mg PO Q6H PRN PRN Reason: pain/fever Stop: 10/27/23 16:35 Last Admin: 09/29/23 08:43 Dose: 1,000 mg Cyclobenzaprine HCl (Cyclobenzaprine Hcl 10 Mg Tab) 10 mg PO HS PRN PRN Reason: muscle spasm Stop: 10/27/23 16:35 Last Admin: 09/29/23 01:41 Dose: 10 mg Docusate Sodium (Docusate Sodium 100 Mg Cap) 100 mg PO QAM ARIES Stop: 10/27/23 16:35 Last Admin: 09/29/23 08:43 Dose: 100 mg Famotidine (Famotidine 20 Mg Tab) 20 mg PO DAILY PRN PRN Reason: Heartburn Stop: 10/27/23 16:35 Last Admin: 09/28/23 08:17 Dose: 20 mg Fluticasone Propionate (Fluticasone Propionate Na Spr 16 Gm Btl) 2 sprays NA DAILY PRN PRN Reason: Other/ALLERGIES Stop: 10/27/23 16:35 Hydromorphone HCl (Hydromorphone Inj 0.5 Mg/0.5 Ml Syr) 0.25 mg IV Q6H PRN PRN Reason: Pain Stop: 10/11/23 16:35 Last Admin: 09/28/23 17:19 Dose: 0.25 mg Dexamethasone 8 mg/ Syringe 2 mls @ 1 mls/min IV Q8 ARIES Stop: 10/28/23 13:59 Last Admin: 09/29/23 13:21 Dose: 1 mls/min Ketorolac Tromethamine (Ketorolac Tromethamine 15 Mg/Ml Vial) 15 mg IV Q6H PRN PRN Reason: Pain Stop: 10/02/23 16:35 Last Admin: 09/29/23 08:43 Dose: 15 mg Ondansetron HCl (Ondansetron Inj 2 Mg/Ml 2 Ml Vial) 4 mg IV Q6H PRN PRN Reason: Nausea And Vomiting Stop: 10/27/23 17:07 Pantoprazole Sodium (Pantoprazole 40 Mg Tab) 40 mg PO DAILY [facility] Stop: 10/28/23 08:59 Last Admin: 09/29/23 08:43 Dose: 40 mg
[2023-09-29] MEDS ORDERED: HYDROCODONE/ACETAMOPHEN 5/325MG TAB PO PRN (15:35)
--- NOTE | 2023-09-29 15:35 | Pain Management Consultation ---
Date of Consultation September 29, 2023 Assessment & Plan (1) Lumbar disc herniation: (2) Lumbar radiculopathy, acute: Plan 1. We have discussed pursuing a right L3-L4 transforaminal epidural steroid injection. Procedure has been briefly discussed with the patient. Upon discharge from the hospital I would like her to come in for a new patient visit and become established with [facility] pain management office to this can be facilitated. 2. Recommend discharging on oral steroids as well as hydrocodone for the patient to take if needed for breakthrough pain. 3. She will take [id number] Tylenol and ibuprofen if needed for mild pain. 4. Recommend physical therapy. Patient states that she does have an order for this. 5. Limit the use of IV Dilaudid in preparation for discharge to home. History of Present Illness Attending Physician: Isai Vogel MD History of Present Illness This is a 33 year old female is being seen in consultation for acute low back pain. She states that her pain started 3 months ago without any specific injury. The pain is located along the right low back and radiates down the right buttock. She has went to her PCP and urgent care on multiple occasions and placed on prednisone taper and Flexeril. She states that the prednisone taper provided some pain relief and the Flexeril caused sleepiness. No rad icular symptoms down the right leg but she did feel like the right leg was intermittently heavy or weak. During admission she has been receiving IV dexamethasone, IV Toradol, oral Tylenol and Flexeril at bedtime with moderate improvement. She would like to avoid surgical intervention and interested in more conservative measures. She does have an order to start physical therapy. No bowel/bladder incontinence, saddle anesthesia, foot drop, falls. Allergies Allergy/AdvReac Type Severity Reaction Status Date / Time No Known Allergies Allergy Verified 01/16/23 10:57 Home Medications Medication Instructions Recorded Confirmed Type docusate sodium 50 mg capsule 100 mg PO QAM 11/28/22 09/27/23 History famotidine 20 mg tablet 20 mg PO DAILY PRN Other 11/28/22 09/27/23 History acetaminophen 500 mg tablet 1,000 mg PO Q6H PRN pain/fever 09/27/23 09/27/23 Hi story cyclobenzaprine 10 mg tablet 10 mg PO HS PRN muscle spasm 09/27/23 09/27/23 History fluticasone propionate 50 2 spray intranasal DAILY PRN Other 09/27/23 09/27/23 History mcg/actuation nasal spray,suspension ibuprofen 800 mg tablet 800 mg PO Q6H PRN pain/fever 09/27/23 09/27/23 History norgestimate-ethinyl estradiol 1 tab PO QAM 09/27/23 09/27/23 History 0.18 mg/0.215mg/0.25mg-35 mcg(28)tablet (Tri-Sprintec (28)) pantoprazole 20 mg tablet,delayed 20 mg PO DAILY 09/27/23 09/27/23 History release (Protonix) prednisone 10 mg tablet 10 mg PO UD 09/27/23 09/27/23 History valacyclovir 1 gram tablet 2,000 mg PO Q12H PRN Cold Sores 09/27/23 09/27/23 History hydrocodone 5 mg-acetaminophen 325 1 tab PO Q6 PRN pain #12 tabs 09/29/23 Rx mg tablet Patient History Medical History Oral contraceptive pill surveillance Vaginal delivery No significant past medical history Surgical History S/P wisdom tooth extraction History of appendectomy Family History Denies family history of Ovarian cancer Prostate cancer Myocardial infarction Breast cancer Colorectal cancer Social History Smoking Status: Never smoker Second Hand Exposure: No; Do You Dip or Chew Tobacco: No; Hx Alcohol Use: No Hx Substance Use: No Preferred Language: German Communication Ability: Effective Hearing Ability: Normal Sample Grinder Required: No Beliefs That Will Affect Care: None marital status: marital status details: Garrett (32) [phone] Current Living Situation: Spouse Current Living Situation Comment: lives with spouse, no pets current occupational status: employed 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 HEAD/FACE: Normocephalic and atraumatic. EYES: No drainage or conjunctival injection. ENT: Nose without bleeding or discharge. Oral mucosa moist. NECK: Full ROM without apparent pain. No swelling or masses noted. RESPIRATORY: Patient with unlabored breathing. No signs of respiratory distress. CHEST/AXILLA: Chest movement symmetrical. No deformities noted. ABDOMEN/GI: No distension BACK: Mild right lumbosacral tenderness. No SI joint tenderness or myofascial spasm noted. SKIN: [place], warm and dry. No rash noted. MS/EXTREMITY: No swelling, no deformities. Moving extremities appropriately. NEURO: Alert and appears oriented. Speech is fluent. Cranial Nerves are grossly intact. PSYCH: Alert, pleasant, affect is calm Results (Pain Clinic) Diagnostic Review MRI: non enhanced MRI Findings: LUMBAR SPINE MRI HISTORY: Lower back pain. worsening pain for months, R>L TECHNIQUE: Multiplanar multisequence MRI of the lumbar spine was performed without the use of contrast. COMPARISON: Lumbar spine radiograph 09/17/2023. FINDINGS: For the purpose of the report the L5-S1 disc space will be located on axial image 27 of 30. There is 4 mm of anterolisthesis of L5 on S1. No acute fractures within the lumbar spine. A few small T2 hyperintense foci within the vertebral bodies are indeterminate but likely benign. The visualized sacrum is intact. Paravertebral soft tissues are unremarkable. Mild disc space narrowing and disc desiccation at L3-L4 and L5-S1. Remaining disc spaces are preserved. The conus remains at the T12-L1 disc space level. L1-L2: No significant central canal or neural foraminal narrowing. L2-L3: No significant central canal or neural foraminal narrowing. L3-L4: There is a 14 x 5 mm right paracentral focal disc protrusion which abuts and displaces the transiting right L4 nerve root. This results in mild right- sided central canal narrowing. No significant neural foraminal narrowing. L4-L5: No significant central canal or neural foraminal narrowing. L5-S1: Small broad-based posterior disc bulge asymmetric to the left with a small left paracentral annular tear. This abuts but does not displace the transiting left S1 nerve roots. No significant central canal or right-sided neural foraminal narrowing. There is mild left-sided neural foraminal narrowing. IMPRESSION: 1. No fractures within the lumbar spine. 2. There is a 14 x 5 mm right paracentral focal disc protrusion at L3-L4 which abuts and displaces the transiting right L4 nerve root. 3. Additional degenerative changes as described above. ACT 112: Negative or not required by law. Electronically signed by: Nadeem Cosme M.D. 09/27/2023 12:01 PM
--- NOTE | 2023-09-30 07:30 | Discharge Summary ---
Date of Service September 30, 2023 Admission HPI Per Admitting Provider She is a 33-year-old female without significant past medical history has been complaining of a low back pain mostly on the right side with radiation to the buttock for the last 3 months. The pain and the radiation has been worse for the last few weeks and she has been to her primary care doctor and also chiropractor for help. Her pain is in the right lower back and the with radiation to the right buttock check and it does not go below that level. Denies any numbness and or tingling involving the lower extremities and denies any weakness involving the right leg. She does not have any problem with urine or bowel habit. She was in her doctor's office recently on is given prednisone with minimal help and also Flexeril which has not been helping as well. She has been on ibuprofen 800 mg 3 times daily as needed and also Tylenol 1000 mg be 3 times daily without much benefit. The pain has been really worse for the last 3 days that she is here for help. MRI of the lumbar spine did show disc protrusion involving L3-L4 with pressure on the L4 nerve root. She was given pain medications and a dose of dexamethasone and spine surgery was consulted for further recommendation. Admission Exam Per Admitting Provider Physical Exam: Sitting on a chair without any acute distress Constitutional: well developed, well nourished, + ill appearing and + obese Eyes: PERRL, conjunctivae normal, anicteric sclerae ENMT: external ear and nose normal, oropharynx normal Neck: trachea midline, no thyromegaly Respiratory: no respiratory distress Auscultation: + lungs not clear to auscultation Cardiovascular: Rate/Rhythm: regular rate and regular rhythm; not tachycardic Heart Sounds: normal S1 and normal S2; no murmur Extremities: no edema Gastrointestinal (Abdomen): Inspection/Auscultation: normal bowel sounds; abdomen not distended Percussion/Palpation: abdomen soft; abdomen nontender Musculoskeletal: Localized tenderness lower back. No other acute arthritis involving any of the joint Neurologic: normal touch/pain/proprioception and moves all extremities; no focal motor deficits Psychiatric: A+Ox3, euthymic affect Lymphatic: no cervical or axillary lymphadenopathy Principal Diagnosis Lumbar disc herniation with radiculopathy Discharge Exam Sitting on a chair without any acute distress Constitutional well developed, well nourished, + ill appearing and + obese Eyes PERRL, conjunctivae normal, anicteric sclerae ENMT external ear and nose normal, oropharynx normal Neck trachea midline, no thyromegaly Respiratory no respiratory distress Auscultation: + lungs not clear to auscultation Cardiovascular Rate/Rhythm: regular rate and regular rhythm; not tachycardic Heart Sounds: normal S1 and normal S2; no murmur Extremities: no edema Gastrointestinal (Abdomen) Inspection/Auscultation: normal bowel sounds; abdomen not distended Percussion/Palpation: abdomen soft; abdomen nontender Neurologic normal touch/pain/proprioception and moves all extremities; no focal motor deficits Psychiatric A+Ox3, euthymic affect Lymphatic no cervical or axillary lymphadenopathy Discharge Data Allergies Allergy/AdvReac Type Severity Reaction Status Date / Time No Known Allergies Allergy Verified 01/16/23 10:57 Consultations 09/27/23 12:51 ED Decision to Admit Stat 09/27/23 13:16 Consult Orthopedic Spine Surgery Routine 09/29/23 06:08 Consult Pain Management Routine Ordered Studies 09/27/23 09:27 MR lumbar spine wo con Stat Hospital Course (1) Lumbar radiculopathy, acute: Has significant 14 x 5 mm right paracentral focal disc protrusion at L3-L4 which abuts and displaces the transiting right L4 nerve root No bladder and/or bowel problem No weakness involving the right leg She was a started with intravenous Toradol and Dilaudid with Flexeril as needed Prednisone dose will be continued as an outpatient Orthospine has been consulted for further evaluation and recommendation Appreciate orthospine input and recommendation Has been started on Decadron intravenously Pain therapist will be consulted for possible injection as an outpatient PT OT evaluation likely discharge tomorrow Has been waiting to be seen by pain therapist before discharge this afternoon Pain is controlled with current regimen Will follow the instructions from the pain therapist (2) Oral contraceptive pill surveillance: Will hold contraceptive pill for now Advised to use additional measures following discharge DVT prophylaxis Subcu heparin CODE STATUS Full Total Time Total Time Spent Total Time Spent (In Minutes): 35 minutes Discharge Plan Discharge Items Patient Disposition: Home - Self-Care Reason For Visit: LUMBAR RADICULOPATHY Discharge Diagnosis: Lumbar disc herniation with radiculopathy Condition on Discharge: Fair Activity: Resume your previous activity Non-emergency contact: Primary Care Provider Call non-emergency contact if: you have any medication questions and your symptoms worsen Follow-up/Referrals: Gloria Chavarria, DO [Primary Care Provider] - (Date & Time 10/03/2023 11:20 AM Provider Dre Schultz MD [facility] ) Diet: Regular Addtl Attending Provider Instructions: Please take precautions to avoid falls Take your medications as advised Please keep appointments with the healthcare providers Pending Studies at Discharge: No Stand-Alone Forms: My [facility], Work/School Release, Smoking Cessation Medications and DC Order Prescriptions: New hydrocodone-acetaminophen 5-325 mg Tablet 1 tab PO Q6 PRN (Reason: pain) Qty: 12 0RF Continued famotidine 20 mg Tablet 20 mg PO DAILY PRN (Reason: Other) docusate sodium 50 mg Capsule 100 mg PO QAM cyclobenzaprine 10 mg tablet 10 mg PO HS PRN (Reason: muscle spasm ) prednisone 10 mg tablet 10 mg PO UD Rx Instructions: TAKE 5 TABLETS BY MOUTH DAILY FOR 2 DAYS THEN 4 TABLETS DAILY FOR 2 DAYS THEN 3 TABLETS DAILY FOR 2 DAYS THEN 2 TABLETS DAILY FOR 2 DAYS THEN 1 TABLET DAILY FOR 2 DAYS ibuprofen 800 mg Tablet 800 mg PO Q6H PRN (Reason: pain/fever) valacyclovir 1 gram tablet 2,000 mg PO Q12H PRN (Reason: Cold Sores) acetaminophen 500 mg Tablet 1,000 mg PO Q6H PRN (Reason: pain/fever) pantoprazole [Protonix] 20 mg Tablet,Delayed Release (Dr/Ec) 20 mg PO DAILY fluticasone propionate 50 mcg/actuation spray,suspension 2 spray INTRANASAL DAILY PRN (Reason: Other) norgestimate-ethinyl estradiol [Tri-Sprintec (28)] 0.18/0.215/0.25 mg-35 mcg (28) tablet 1 tab PO QAM Discharge Orders: Discharge Order (Routine); Ordered 09/29/23 Ordered By: Isai Whitehead/Other Patient Handouts: Hydrocodone/Acetaminophen Oral Tablet Admission Data Admit Date/Time: 09/27/23 13:17 Attending Provider: Isai Vogel Admit Provider: Isai Vogel Primary Care Provider: Gloria Chavarria Other Providers: Elbert Russell; Lela,ManNakia Blanc Other Interventions: Discharge Summary Assessment (RN) Last Done: 09/29/23 16:12
== END 2023-09-29 16:45 | disposition home or self-care (01) | DRG 552 ==
LOC: ED 09:12 → 2N 13:17

== ENCOUNTER 2025-03-11 23:08 | Inpatient (IN) ==
[2025-03-11] MEDS ORDERED: LIDOCAINE 1% LOCAL 20 ML VIAL INFIL PRN (23:29)
[2025-03-11] MEDS ORDERED: LACTATED RINGER'S 1,000 ML IV PRN (23:29)
[2025-03-11] MEDS ORDERED: OXYTOCIN 30 UNITS/NSS 30 UNITS/500 ML BAG IV PRN (23:29)
[2025-03-11] MEDS ORDERED: MoRPHine SULFATE PF 1 MG/ML 10 ML AMP/VIAL ONE (23:33)
[2025-03-11] MEDS ORDERED: PHENYLEPHRINE HCL 25 MG/250 ML NSS IV ONE (23:33)
[2025-03-11] MEDS ORDERED: OXYTOCIN 10 UNITS/ML VIAL ONE (23:33)
[2025-03-11] MEDS ORDERED: ONDANSETRON INJ 2 MG/ML 2 ML VIAL ONE (23:33)
[2025-03-11] MEDS ORDERED: DEXAMETHASONE SOD INJ 4 MG/ML VIAL ONE (23:33)
--- NOTE | 2025-03-11 23:33 | History & Physical Report ---
Date of Service March 11, 2025 Assessment & Plan (1) Breech presentation: Plan: Labor, breech presentation - recommend that we proceed with delivery by section. Discussed with patient, she is agreeable. Informed consent reviewed, questions answered, signed. Will proceed to OR for delivery. History of Present Illness Chief Complaint: labor Primary Care Provider: Jennie Polanco MD 35yo @ 37 4/7, came to L&D after large gush of clear fluid. AMA Weekly NST's @ 36 weeks GBS carrier-treat in labor Marginal cord insertion BREECH PRESENTATION C/S SCHEDULED FOR 03/25/[address] LEIVA Allergies Allergy/AdvReac Type Severity Reaction Status Date / Time No Known Allergies Allergy Verified 03/08/25 13:06 Home Medications Medication Instructions Recorded Confirmed Type famotidine 20 mg tablet 20 mg PO DAILY PRN Other 11/28/22 03/08/25 History calcium carbonate [Tums] PO PRN 08/13/24 03/08/25 History choline bitartrate [choline] PO 08/13/24 03/08/25 History inulin [Fiber Gummies] PO PRN 08/13/24 03/08/25 History polyethylene glycol 3350 [Miralax] PO PRN 08/13/24 03/08/25 History 21-iron fu-folic acid PO 08/13/24 03/08/25 History [ Complete] simethicone [Gas-X] PO PRN 08/13/24 03/08/25 History valacyclovir 1 gram tablet 1,000 mg PO DAILY 5 days #5 tabs 01/11/25 03/08/25 Rx (Valtrex) Patient History Medical History (Updated 03/11/25 @ 23:35 by Jaylin Bustamante DO) Varicella vaccination Vulvar dystrophy Lumbar disc herniation Vaginal delivery Surgical History S/P eye surgery benign tumor R eye S/P wisdom tooth extraction History of appendectomy Family History Father Hypercholesteremia Denies family history of Ovarian cancer Prostate cancer Myocardial infarction Breast cancer Colorectal cancer Social History Smoking Status: Never smoker Second Hand Exposure: No; Do You Dip or Chew Tobacco: No; Hx Alcohol Use: No Hx Substance Use: No Preferred Language: [place] Communication Ability: Effective Hearing Ability: Normal Assignment Desk Assistant Required: No Beliefs That Will Affect Care: None marital status: marital status details: Garrett (35) [phone] Current Living Situation: Spouse and Family Current Living Situation Comment: lives with spouse, child, no pets current occupational status: employed current occupation: RN in endoscopy [employer] How many Children do You have: 0 Feels Safe at Home: Yes Childhood Exposure to Second-Hand Smoke: Yes Diet: regular caffeine: Yes Dental Care, Regularly: Yes Physical Activity Frequency: 1-2 Times per Week Seatbelt Use: always Sunscreen Use: Yes Assistive Devices: Glasses Review of Systems All systems reviewed & are unremarkable except as noted in HPI & below Physical Exam Physical Exam: T Cat 1 [place] Q 4 SVE 4/80/-2 Limited bedside US: breech Constitutional: WD/WN, vitals as above Respiratory: normal respiratory effort, lungs clear to auscultation no respiratory distress Cardiovascular: Rate/Rhythm: regular rate and regular rhythm Gastrointestinal (Abdomen): Inspection/Auscultation: abdomen normal to inspection Percussion/Palpation: abdomen soft; abdomen nontender Gravid. No s/s chorio or abruption. Skin: no rashes, warm and dry Psychiatric: A+Ox3, euthymic affect Results & Data Vital Signs (Past 12 Hours) Vital Signs Temp Pulse Resp BP 03/11/25 23:22 18 03/11/25 23:22 36.5 C 18 03/11/25 23:21 102 H 157/87 H 03/11/25 23:20 105 H 159/95 H Coding Level of Care Code None Diagnoses Breech presentation O32.1XX0
[2025-03-11] MEDS: LACTATED RINGER'S 1,000 ML IV SCH (23:53)
--- NOTE | 2025-03-11 23:55 | Anesthesiology Consultation ---
Date of Service March 11, 2025 Assessment & Plan ASA ASA2E Proposed Anesthesia Anesthesia Type: Spinal Risk / Benefits Reviewed With: PT / POA / Parent / Guardian, Accepts Plan and Informed Consent Obtained Additional Comments: genevarecedi baby History Surgery Operation Date: 03/11/25 23:30 Proposed Procedures p Section in LD - Jaylin Bustamante DO Height/Weight Height: 5 ft 7 in Weight: 99.79 kg Allergies Allergy/AdvReac Type Severity Reaction Status Date / Time No Known Allergies Allergy Verified 03/08/25 13:06 Medications Home Medications Medication Instructions Recorded Confirmed Last Taken famotidine 20 mg tablet 20 mg PO DAILY PRN Other 11/28/22 03/08/25 Unknown calcium carbonate [Tums] PO PRN 08/13/24 03/08/25 Unknown choline bitartrate [choline] PO 08/13/24 03/08/25 Unknown inulin [Fiber Gummies] PO PRN 08/13/24 03/08/25 Unknown polyethylene glycol 3350 [Miralax] PO PRN 08/13/24 03/08/25 Unknown 21-iron fu-folic acid PO 08/13/24 03/08/25 Unknown [ Complete] simethicone [Gas-X] PO PRN 08/13/24 03/08/25 Unknown valacyclovir 1 gram tablet 1,000 mg PO DAILY 5 days #5 tabs 01/11/25 03/08/25 Unknown (Valtrex) Active Medications Generic Name Dose Route Start Last Admin Trade Name Freq PRN Reason Stop Dose Admin Lactated Ringer's 1,000 mls @ 999 mls/hr 03/11/25 23:30 03/11/25 23:53 Lr IV 03/12/25 00:30 999 mls/hr .Q1H1M ARIES Administration Past Medical History Medical History (Updated 03/11/25 @ 23:35 by Jaylin Bustamante DO) Varicella vaccination Vulvar dystrophy Lumbar disc herniation Vaginal delivery Exercise / Class Metabolic Activity II 4-5 Yardwork/Stairs/Walk up hill Past Family History Family History Father Hypercholesteremia Denies family history of Ovarian cancer Prostate cancer Myocardial infarction Breast cancer Colorectal cancer Past Surgical History Surgical History S/P eye surgery benign tumor R eye S/P wisdom tooth extraction History of appendectomy Past Anesthesia History No Hx of Anesthesia Complications and No Family Hx of Anesthesia Complications History of PONV No Hx of PONV and No Hx of Motion Sickness Social History Smoking Status: Never smoker Do You Dip or Chew Tobacco: No Hx Alcohol Use: No Hx Substance Use: No substance use type: does not use Review of Systems denies fever/cough/ colds/ chest pain/ SOB/ JOSH denies JOSH Physical Exam Vital Signs Last Vital Signs Temp 36.5 C 03/11/25 23:32 Pulse 102 H 03/11/25 23:21 Resp 18 03/11/25 23:32 BP 157/87 H 03/11/25 23:21 O2 Del Method Room Air 03/11/25 23:32 ENMT Mouth: no TMJ abnormality and no dentition abnormality Thyromental Distance: > or= 3.5 Finger Breadths Mallampati Class: II Neck neck extension not limited Respiratory normal respiratory effort; no respiratory distress Auscultation: lungs clear to auscultation bilaterally Cardiovascular Rate/Rhythm: regular rate and regular rhythm Neurologic moves all extremities Psychiatric Orientation: alert and oriented x 3
[2025-03-12 00:02] LABS: Hematocrit (blood only) 36.2 % (37.0-47.0); Hemoglobin 11.5 g/dl (12.0-16.0); Mean Corpuscular Hemoglobin 26.4 pg (25.0-34.0); Mean Corpuscular Volume 83.2 fL (80.0-100.0); Platelet Count 283 K/uL (130-400); RDW Standard Deviation 47.6 fL (36.4-46.3); Red Blood Count 4.35 M/uL (4.20-5.40); White Blood Count 9.38 K/ul (4.8-10.8)
[2025-03-12] MEDS ORDERED: AZITHROMYCIN 500 MG/255 ML BAG IV ONE (00:13)
[2025-03-12] MEDS: CITRIC ACID/SODIUM CITRATE 15 ML UDC PO SCH (00:16)
[2025-03-12] MEDS: ACETAMINOPHEN 500 MG TAB PO SCH (00:16)
[2025-03-12 00:21] LABS: Alanine Aminotransferase 9.0 U/L (7-52); Albumin Globulin Ratio 0.9 (0.9-2); Alkaline Phosphatase 137.0 U/L (34-104); Anion Gap 11.0 (3-11); Bilirubin,Total 0.4 mg/dl (0.2-1.0); Blood Urea Nitrogen 9.0 mg/dl (6-23); Calcium 9.5 mg/dl (8.6-10.3); Carbon Dioxide 21.0 mmol/L (21-32); Chloride 104.0 mmol/L (98-107); Creatinine Clr Calc Pharmacy 188.8 ml/min; Globulin 3.7 gm/dl (2.5-4.0); Glucose 83.0 mg/dl (70-99(Fasting)); Potassium 3.7 mmol/L (3.5-5.1); Sodium 136.0 mmol/L (136-145); Total Protein 7.2 gm/dl (6.0-8.3)
[2025-03-12 01:25] LABS: Base Excess Cord Arterial Bld 2.2 mEq/L (-9-1.8); Base Excess Cord Venous Blood 0.8 mEq/L (-7.7-1.9); CO2 Cord Arterial Blood 54 mmHg (39.1-73.5); Cord Venous Blood PO2 30 mmHg (14.1-43.3); HCO3 Cord Arterial Blood 29 mmol/L (19.7-28.5); O2 Saturation Cord Venous Bld 62.5 % (<68); Oxygen Sat Cord Arterial Blood < 60.0 % (<60); PO2 Cord Arterial Blood 20 mmHg (4.1-31.7); pH Cord Arterial Blood 7.34 (7.1-7.38)
[2025-03-12] MEDS ORDERED: ONDANSETRON INJ 2 MG/ML 2 ML VIAL IV PRN ×2 (01:57→20:00)
[2025-03-12] MEDS ORDERED: NALBUPHINE HCL INJ 10 MG/ML AMP IV PRN (01:57)
[2025-03-12] MEDS ORDERED: MoRPHine SULFATE 2 MG/ML CARP IV PRN (01:57)
[2025-03-12] MEDS ORDERED: NALOXONE HCL 1 MG in SODIUM CHLORIDE 0.9% 1,000 ML IV PRN (01:57)
[2025-03-12] MEDS ORDERED: NALOXONE HCL 0.4 MG/1 ML VIAL/CARP IV PRN (01:57)
[2025-03-12] MEDS ORDERED: NALOXONE HCL 0.08 MG in SYRINGE 1.8 ML IV PRN (01:57)
[2025-03-12] MEDS ORDERED: LACTATED RINGER'S 500 ML IV PRN (01:57)
[2025-03-12] MEDS ORDERED: diphenhydrAMINE 50 MG/ML VIAL IV PRN ×2 (01:57→20:00)
[2025-03-12] MEDS ORDERED: DC INTRASPINAL MORPHINE SCH (02:00)
[2025-03-12] MEDS ORDERED: NO NARCOTICS OR SEDATIVES SCH (02:00)
[2025-03-12] MEDS ORDERED: FAMOTIDINE 20 MG TAB PO PRN (02:05)
[2025-03-12] MEDS ORDERED: BENZOCAINE 20% SPRY 85 APPLN/85 GM CAN EXT PRN (02:05)
[2025-03-12] MEDS ORDERED: CALCIUM CARBONATE 500 MG CHEWABLE TAB PO PRN (02:05)
[2025-03-12] MEDS ORDERED: MAGNESIUM HYDROXIDE SUSP 30 ML UDC PO PRN (02:05)
[2025-03-12] MEDS ORDERED: HYDROCORTISONE ACETATE 25 MG SUPP PR PRN (02:05)
[2025-03-12] MEDS ORDERED: SENNA 8.6 MG TAB PO PRN (02:05)
--- NOTE | 2025-03-12 02:08 | Operative Report ---
Post Operative Report Pre & Post Diagnosis Operation Date: 03/11/25 23:30 Pre-Op Diagnosis: 1.) Breech Presentation 2.) Labor Post-Op Diagnosis: Same as pre op I identified the patient and participated in the time-out.: Yes Procedure Operation Date: 03/11/25 23:30 Actual Procedures p Primary Low Transverse Section for the of a live female child at 0051. - Jaylin Bustamante DO Surgeon Jaylin Bustamante, Tier And Detonator Yenni Brown RN Quantitative Blood Loss (QBL) 371 Findings Consistent with Post-Op Diagnosis Viable female , Apgars 8/9. Weight pending, please see nursery records. Specimens cord blood, cord gas, placenta Drains beasley clear yellow Anesthesia Type Spinal Complications none Disposition Accompanied Patient To Recovery: Yes Disposition: L&D Indications 35yo @ 37 5/7, breech presentation in labor. Description of Procedure The patient was seen in her labor and delivery room, risks benefits and alternatives to surgery were reviewed. Informed consent obtained. Questions were answered. She was taken to the operating room, spinal anesthesia was administered. Ancef and azithromycin given. She was then prepared and draped in the usual sterile fashion in the supine position with a leftward tilt. Timeout was confirmed. A Pfannenstiel skin incision was made with a scalpel, and carried through to the underlying layer of fascia. Fascia was nicked at midline, and this incision was extended bilaterally. The superior aspect of the fascial incision was grasped with Aaron clamps x2, elevated off the underlying rectus abdominis muscles, and dissected sharply and bluntly. In similar fashion, the inferior aspect of the fascial incision was dissected. The rectus abdominis muscles were , and the peritoneum was entered bluntly digitally. This was extended bilaterally. The bladder flap was taken down carefully using Metzenbaum scissors. Using a new scalpel, a low transverse uterine incision was created. Clear amniotic fluid noted. The infant was delivered from a brooke breech presentation. The buttocks delivered, followed by legs, then each arm swept medially, then head delivered. Spontaneous cry on the field. The cord was doubly clamped and cut, and the was handed off to the waiting respiratory care program director. A segment was retained for cord gases. Cord blood was obtained. The placenta was delivered spontaneously intact. The uterus was exteriorized, and cleared of all clots and debris. The hysterotomy incision was reapproximated using 0 Vicryl in a running locked stitch. A second layer of the same suture was used to imbricate the incision. Posterior uterus was evaluated and normal. Multiple sutures to hysterotomy and anterior aspect of uterus to obtain hemostasis - suspect large venous sinus. Eventually, excellent hemostasis achieved with 2-0 Vicryl [id number] sutures. The uterus was returned to the abdomen, and gutters were cleared of clots and debris. Perclot applied to raw surfaces. Excellent hemostasis was observed. The fascial incision was reapproximated using 0 Vicryl in a running stitch. The subcutaneous tissue was irrigated, and reapproximated using 2-0 plain gut in a running stitch. The skin was reapproximated using 4-0 Vicryl in a running subcuticular stitch. Steri-Strips and a bandage were applied. The patient tolerated the procedure well, and will be taken to the recovery area in stable and good condition. I attest to the content of the Intraoperative Record and any orders documented therein. Any exceptions are noted below. OB Procedure Charges 00222
--- NOTE | 2025-03-12 02:09 | Anesthesiology Progress Note ---
Date of Service March 12, 2025 Anesthesia Post Procedure Vital Signs Vital Signs: Temp Pulse Resp BP Pulse Ox O2 Del Method 03/12/25 02:05 95 03/12/25 02:05 83 03/12/25 02:05 85 131/60 92 03/11/25 23:32 36.5 C 18 Room Air 03/11/25 23:22 36.5 C 18 03/11/25 23:22 18 03/11/25 23:22 36.5 C 18 03/11/25 23:21 102 H 157/87 H 03/11/25 23:20 105 H 159/95 H Pain Intensity Lower Abdomen: Pain Intensity: 3 Transfer of Care Handoff Completed per policy Notes Mental Status: alert / awake / arousable and participated in evaluation Patient Amnestic to Procedure: Yes Nausea / Vomiting: adequately controlled Pain: adequately controlled Airway Patency, RR, SpO2: stable & adequate BP & HR: stable & adequate Hydration State: stable & adequate Neuraxial Anesthesia: was administered and sensory block is resolving Anesthetic Complications: no major complications apparent and Pt Satisfied with anesthetic care
[2025-03-12] MEDS: OXYTOCIN 20 UNITS/LR 1,002 ML IV SCH (02:21)
[2025-03-12] MEDS: KETOROLAC 30 MG/ML VIAL IV SCH (02:22)
[2025-03-12] MEDS: KETOROLAC 30 MG/ML VIAL ONE (02:43)
[2025-03-12] MEDS: DIPHTHER/TETAN/PERTUS Vaccine (Tdap, Adol/Adult) 0.5mL IM ONE (02:43)
[2025-03-12] MEDS: HYDROmorphone INJ 0.5 MG/0.5 ML SYR IV PRN (03:52)
[2025-03-12] MEDS: PROMETHAZINE 12.5 MG/50.5 ML BAG IV PRN (05:33)
--- NOTE | 2025-03-12 07:39 | Obstetrical Progress Note ---
Date of Service March 12, 2025 Assessment & Plan (1) care following delivery: POD#0 doing well. Vitals wnl. Bandage CDI. Not yet ambulating. Green in place, adequate urine output. Will check labs this AM. Routine care. Subjective Voiding: no voiding problems Diet Tolerance:: regular diet Lochia:: Moderate Review of Systems All systems reviewed & are unremarkable except as noted in HPI & below Physical Exam Constitutional WD/WN, vitals as above no acute distress Respiratory normal respiratory effort Cardiovascular Rate/Rhythm: regular rate and regular rhythm Gastrointestinal (Abdomen) Inspection/Auscultation: abdomen normal to inspection; abdomen not distended Percussion/Palpation: abdomen soft Genitourinary OB Exam Abdomen: + fundal height Fundus: + firm; not tender Results & Data Vital Signs (Past 12 Hours) Vital Signs Temp Pulse Pulse Resp BP BP Pulse Ox 03/12/25 06:32 16 98 03/12/25 05:30 16 98 03/12/25 04:30 18 98 03/12/25 04:30 36.8 C 84 18 133/83 98 03/12/25 04:11 86 143/81 H 03/12/25 04:10 36.6 C 18 03/12/25 04:10 92 H 98 03/12/25 04:05 94 H 96 03/12/25 04:01 87 137/65 03/12/25 04:00 89 98 03/12/25 03:57 94 H 93 03/12/25 03:55 94 H 98 03/12/25 03:50 85 142/78 H 98 03/12/25 03:45 82 99 03/12/25 03:43 95 H 139/67 03/12/25 03:40 18 03/12/25 03:40 91 H 98 03/12/25 03:35 78 97 03/12/25 03:30 80 142/65 H 96 03/12/25 03:25 79 97 03/12/25 03:20 82 171/89 H 98 03/12/25 03:15 81 98 03/12/25 03:10 18 03/12/25 03:10 79 148/88 H 98 03/12/25 03:05 77 98 03/12/25 03:00 74 145/80 H 97 03/12/25 02:55 18 03/12/25 02:55 85 97 03/12/25 02:52 78 138/79 03/12/25 02:50 75 97 03/12/25 02:45 83 97 03/12/25 02:40 18 03/12/25 02:40 83 98 03/12/25 02:35 90 97 03/12/25 02:30 87 125/72 96 03/12/25 02:25 81 98 03/12/25 02:20 80 127/66 94 03/12/25 02:18 79 94 03/12/25 02:15 87 97 03/12/25 02:12 77 94 03/12/25 02:10 18 03/12/25 02:10 78 96 03/12/25 02:05 18 03/12/25 02:05 36.4 C L 18 03/12/25 02:05 95 03/12/25 02:05 83 03/12/25 02:05 85 131/60 92 03/11/25 23:32 36.5 C 18 03/11/25 23:22 36.5 C 18 03/11/25 23:22 18 03/11/25 23:22 36.5 C 18 03/11/25 23:21 102 H 157/87 H 03/11/25 23:20 105 H 159/95 H O2 Del Method 03/12/25 06:32 03/12/25 05:30 03/12/25 04:30 03/12/25 04:30 Room Air 03/12/25 04:11 03/12/25 04:10 03/12/25 04:10 03/12/25 04:05 03/12/25 04:01 03/12/25 04:00 03/12/25 03:57 03/12/25 03:55 03/12/25 03:50 03/12/25 03:45 03/12/25 03:43 03/12/25 03:40 03/12/25 03:40 03/12/25 03:35 03/12/25 03:30 03/12/25 03:25 03/12/25 03:20 03/12/25 03:15 03/12/25 03:10 03/12/25 03:10 03/12/25 03:05 03/12/25 03:00 03/12/25 02:55 03/12/25 02:55 03/12/25 02:52 03/12/25 02:50 03/12/25 02:45 03/12/25 02:40 03/12/25 02:40 03/12/25 02:35 03/12/25 02:30 03/12/25 02:25 03/12/25 02:20 03/12/25 02:18 03/12/25 02:15 03/12/25 02:12 03/12/25 02:10 03/12/25 02:10 03/12/25 02:05 03/12/25 02:05 03/12/25 02:05 03/12/25 02:05 03/12/25 02:05 03/11/25 23:32 Room Air 03/11/25 23:22 03/11/25 23:22 03/11/25 23:22 03/11/25 23:21 03/11/25 23:20
[2025-03-12] MEDS: LACTATED RINGER'S 1,000 ML IV SCH (07:57)
[2025-03-12] MEDS: SODIUM CHLORIDE 0.9% 1,000 ML IV SCH (07:57)
[2025-03-12] MEDS: MoRPHine SULFATE PF 1 MG/ML 10 ML AMP/VIAL INT SPINAL ONE (07:57)
[2025-03-12 08:07] LABS: Hematocrit (blood only) 37.0 % (37.0-47.0); Hemoglobin 11.5 g/dl (12.0-16.0); Immature Granulocytes # (auto) 0.05 K/uL (0.01-0.20); Immature Granulocytes % (auto) 0.4 %; Mean Corpuscular Hemoglobin 26.3 pg (25.0-34.0); Mean Corpuscular Volume 84.7 fL (80.0-100.0); Platelet Count 269 K/uL (130-400); RDW Standard Deviation 47.8 fL (36.4-46.3); Red Blood Count 4.37 M/uL (4.20-5.40); White Blood Count 11.30 K/ul (4.8-10.8)
[2025-03-12] MEDS: FERROUS SULFATE 325 MG TAB PO SCH (08:12)
[2025-03-12] MEDS: ACETAMINOPHEN 325 MG TAB PO SCH (08:12)
[2025-03-12] MEDS: DOCUSATE SODIUM 100 MG CAP PO SCH (08:12)
[2025-03-12] MEDS: SIMETHICONE 80 MG CHEW PO SCH (08:13)
[2025-03-12] MEDS: PRENATAL VITAMIN 1 TAB PO SCH (08:13)
[2025-03-12] MEDS ORDERED: HYDROmorphone INJ 0.5 MG/0.5 ML SYR IV PRN (20:00)
[2025-03-12] MEDS ORDERED: PROMETHAZINE 12.5 MG/50.5 ML BAG IV PRN (20:00)
[2025-03-12] MEDS ORDERED: diphenhydrAMINE Capsule 25 MG CAP PO PRN (20:00)
[2025-03-13] MEDS ORDERED: KETOROLAC 30 MG/ML VIAL IV PRN (02:03)
[2025-03-13] MEDS: IBUPROFEN 600 MG TAB PO SCH (02:11)
[2025-03-13 07:44] LABS: Hematocrit (blood only) 32.0 % (37.0-47.0); Hemoglobin 9.8 g/dl (12.0-16.0)
[2025-03-13] MEDS ORDERED: DOCUSATE SODIUM 100 MG CAP PO SCH (09:45)
--- NOTE | 2025-03-13 09:48 | Obstetrical Progress Note ---
Date of Service March 13, 2025 Assessment & Plan (1) care following delivery: Day 1 status post primary section. Patient noting significant bloating/distention and related pain. Discussed bowel care regimen as well as frequent ambulation and chewing gum. Discussed recommendations related to diet until passing gas normally. Will continue to monitor. H&H appropriate for post day 2 Subjective Ambulation: ambulating normally Voiding: no voiding problems Passing Gas:: Yes (Minimal with effort) Diet Tolerance:: regular diet Lochia:: Moderate Feeding Type:: breast feeding Patient reporting significant bloating and related pain. I discussed recommendations related to bowel care to help with the bloating including minimizing solid p.o. intake and limiting to simple foods such as toast. Discussed ambulating frequently and chewing gum. Physical Exam Gastrointestinal (Abdomen) Inspection/Auscultation: + abdomen distended Percussion/Palpation: + abdomen tender and + tympanic to percussion Results & Data Vital Signs (Past 12 Hours) Vital Signs Temp Pulse Resp BP Pulse Ox O2 Del Method 03/13/25 08:40 36.6 C 96 H 18 122/79 Room Air 03/13/25 00:15 36.8 C 90 18 101/66 97 Room Air
[2025-03-13] MEDS: MAGNESIUM HYDROXIDE SUSP 30 ML UDC PO SCH (10:17)
[2025-03-13] MEDS: SENNA 8.6 MG TAB PO SCH (10:17)
[2025-03-14] MEDS: IBUPROFEN 600 MG TAB PO PRN (02:18)
[2025-03-14 06:10] VITALS: O2SAT 97
--- NOTE | 2025-03-14 06:21 | Obstetrical Progress Note ---
Date of Service March 14, 2025 Assessment & Plan (1) care following delivery: (2) Breech presentation: Plan 35 y/o post- day 2 s/p delivery. complicated by breech presentation. Feels well today. Vital signs stable Continue post- care Encourage ambulation and Pain controlled with ibuprofen Hgb stable Discharge home today, follow up with Dr. Bustamante in 6 weeks. Admission and Anticipated Discharge Date Admission Date: March 11, 2025 Supervising Physician Co-Signing Physician Notes Patient seen with resident and agree with above findings and plan. Patient doing well and stable for discharge as preferred. Subjective 35 y/o post- day 2 s/p delivery. was complicated by breech presentation. Abdominal distension/gas pain/bloating that she was experiencing has been resolving. Continuing to pass gas and having bowel movements without concern. Has been able to tolerate diet fine, discussing diet recommendations and avoiding certain foods until symptoms have resolved. Ambulation: ambulating normally Voiding: no voiding problems Passing Gas:: Yes Diet Tolerance:: regular diet Lochia:: Small Feeding Type:: breast-feeding Current Pain Level: mild, mostly tenderness around umbilicus Resting comfortably this AM in NAD. Denies NAVARRO, CP, SOB, N/V/D, LE pain/swelling. Physical Exam Physical Exam: General: patient resting comfortably, NAD, non-toxic in appearance, AA&O x 4, answers questions appropriately. Skin: warm, dry, intact HEENT: NC/AT, anicteric sclera, conjunctiva without injection, moist mucus membranes. Heart: +S1/S2, regular, no m/r/g Lungs: equal air entry bilaterally, no rales/rhonchi/wheezes Abd: +BS, soft, NT/ND, tender uterine fundus firm at umbilicus, caesarean incision C/D/I. Ext: warm, no clubbing/cyanosis or edema, [place]'s neg. Neuro: nonfocal, patient AA&O x 4, speech intact, no facial droop, moving all extremities on command. Results & Data Vital Signs (Past 12 Hours) Vital Signs Temp Pulse Resp BP Pulse Ox O2 Del Method 03/14/25 01:00 36.5 C 80 18 110/70 97 Room Air 09/14/25 21:00 36.5 C 88 16 114/72 98 Room Air
[2025-03-14] MEDS: ACETAMINOPHEN 325 MG TAB PO PRN (08:22)
[2025-03-14 08:58] VITALS: BP 121/78; PULSE 91; RESP 16; TEMP 97.2
--- NOTE | 2025-03-15 21:42 | Discharge Summary ---
Date of Service March 15, 2025 Admission HPI Per Admitting Provider 35yo @ 37 10/04, came to L&D after large gush of clear fluid. AMA Weekly NST's @ 36 weeks GBS carrier-treat in labor Marginal cord insertion BREECH PRESENTATION C/S SCHEDULED FOR 03/25/[address] LEIVA Admission Exam (Per Admitting) Constitutional WD/WN, vitals as above no acute distress Respiratory normal respiratory effort, lungs clear to auscultation normal respiratory effort; no respiratory distress Cardiovascular Rate/Rhythm: regular rate and regular rhythm Gastrointestinal (Abdomen) Inspection/Auscultation: abdomen normal to inspection; abdomen not distended Percussion/Palpation: abdomen soft; abdomen nontender Skin no rashes, warm and dry Psychiatric A+Ox3, euthymic affect Genitourinary OB Exam Abdomen: + fundal height Discharge Data Procedures Performed Operation Date: 03/11/25 23:30 Actual Procedures p Primary Section for the of a live female child at 0051. - Jaylin Bustamante, DO Hospital Course (1) care following delivery: (2) Breech presentation: Plan 35 y/o post- day 2 s/p delivery. complicated by breech presentation. Feels well today. Vital signs stable Continue post- care Encourage ambulation and Pain controlled with ibuprofen Hgb stable Discharge home today, follow up with Dr. Bustamante in 6 weeks. Supervising Physician Co-Signing Physician Notes Patient seen with resident and agree with above findings and plan. Patient doing well and stable for discharge as preferred. Coding Level of Care Code None Diagnoses care following delivery Z39.2 Breech presentation O32.1XX0
== END 2025-03-14 15:10 | disposition home or self-care (01) | DRG 788 ==
LOC: OPB 23:08 → 4S1 23:09 → 4E2 03-12 04:32
DX: Z37.0 Single live birth; O32.1XX0 Maternal care for breech presentation, not applicable or unspecified; O99.824 Streptococcus B carrier state complicating childbirth; Z3A.37 37 weeks gestation of pregnancy